=== PATIENT | female | born 1980 | race Caucasian/White ===

== ENCOUNTER 2016-09-25 08:29 | Inpatient (IN) | payer BC, OTHER ==
[~2016-09-25] VITALS: Ht 175.3 cm; Wt 65.8 kg
[2016-09-25] MEDS ORDERED: LOPERAMIDE HCL 2 MG CAPSULE PO PRN ×2 (12:30)
[2016-09-25] MEDS ORDERED: MAG HYDROX/AL HYDROX/SIMETH 30 ML LIQUID UDC PO PRN (12:30)
[2016-09-25] MEDS ORDERED: CLONIDINE HCL 0.1 MG TABLET PO PRN (12:30)
[2016-09-25] MEDS ORDERED: ACETAMINOPHEN 325 MG TABLET PO PRN (12:30)
[2016-09-25] MEDS ORDERED: THIAMINE HCL 200 MG/2 ML VIAL IM ONE (12:30)
[2016-09-25] MEDS ORDERED: ONDANSETRON ODT 4 MG TAB.RAPDIS SL PRN (12:30)
[2016-09-25] MEDS ORDERED: diphenhydrAMINE 50 MG CAPSULE PO PRN (12:30)
[2016-09-25] MEDS ORDERED: LORAZEPAM 1 MG TABLET PO PRN ×2 (12:30)
[2016-09-25] MEDS ORDERED: MAGNESIUM HYDROXIDE 30 ML LIQUID UDC PO PRN (12:30)
[2016-09-25] MEDS ORDERED: HYDROXYZINE PAMOATE 25 MG CAPSULE PO PRN (12:30)
[2016-09-25] MEDS ORDERED: DICYCLOMINE HCL 20 MG TABLET PO PRN (12:30)
[2016-09-25] MEDS ORDERED: LORAZEPAM 2 MG/1 ML VIAL IM PRN (12:30)
[2016-09-25] MEDS ORDERED: MIRALAX 17 GM POWD.PACK PO PRN (12:30)
[2016-09-25] MEDS ORDERED: ONDANSETRON 4 MG/2 ML VIAL IM PRN (12:30)
--- NOTE | 2016-09-25 12:34 | NUR ---
INTAKE ASSESSMENT Patient arrived Aox4, in stable condition. Patient is ambulatory, but states she is very weak because she hasn't eaten in 5 days. Wheelchair provided to patient for transportation upon arrival. Vital signs are stable. Patient reports no known allergies and no seizure history. Patient brought Lexapro and Trazodone with her. Explained unit policies and protocols and patient verbalized understanding. Will admit patient upon arrival to 3rd floor.
[2016-09-25 13:00] VITALS: BP 102/57
[2016-09-25] MEDS ORDERED: ESCI5TAB PO (13:29)
[2016-09-25] MEDS ORDERED: TRAZ-144 PO (13:29)
--- NOTE | 2016-09-25 13:38 | NUR ---
ADMISSION NOTE Vital signs: BP- 102/57 HR-96 TEMP- 96.9 RR-16 O2-96% Pain-6/10 Weight- 145 lbs Height- 5'9 Allergies- NKA Patient is a 36 year old female admitted to [facility] on 09/25/16 at 1250. Patient is under the care of Dr. Bejarano for alcohol dependence. Patient denies any suicidal or homicidal ideations at this time. Patient denies being hospitalized in the last 30 days. Patient denies chest pain or shortness of breath. Patient reports using Lexapro and Trazodone everyday with unknown dosages. Upon assessment, patient has bruising to the right upper forehead, left shoulder, and left forearm. Patient reports the bruising is from playing rough with her child and getting balls thrown at her by her 2 year old. Upon admission, CIWA score is 10. NKA. AOx4. Regular diet. Vital signs stable. Patient is full code. Patient denies any history of seizures. Patient states her PCP is Dr. Emerald Suero and her Psychiatrist is Dr. Harrell. Breathing is even and unlabored. Patient states she hasnt eaten in about 5 days and is feeling very weak. Wheelchair provided to patient for safety. Patient placed on 1:1 with sitter at bedside for observation and safety measures. Patient states bowel habits are normal, but the consistency is abnormally textured. Patient repots being admitted to a detox one year ago, but only stayed for one day. She also reports being involved in many outpatients. Patient reports living with her and her child. She states she has history of anxiety, depression, and neuropathy. Patient does not smoke cigarettes. Dr. Bejarano has assessed patient and placed her under observation. All needs have been met. Patient has been oriented to the room, unit, and staff. All safety measures in place per hospital policy. Bed in lowest position, locked, side rails upx3, call light within reach, sitter at bedside. Will continue to monitor and provide safe and supportive environment. Substance Abuse: ETOH: 1 bottle of wine 3 times a week for 8 months, last drank 1 bottle of wine 09/24/16
[2016-09-25 14:27] LABS: *URINE HCG, QUAL NEGATIVE (NEGATIVE)
[2016-09-25] MEDS: GABAPENTIN 300 MG CAPSULE PO SCH (14:43)
[2016-09-25 15:00] LABS: ALANINE AMINOTRANSFERASE 41 U/L (14-59); ALKALINE PHOSPHATASE 230 U/L (50-136); AMYLASE 32 U/L (25-115); ASPARTATE AMINOTRANSFERASE 286 U/L (15-37); BILIRUBIN,TOTAL 2.3 mg/dL (0.2-1.0); CARBON DIOXIDE 33 mmol/L (21-32); CHLORIDE 99 mmol/L (98-107); CREATININE 0.5 mg/dL (0.6-1.3); GLUCOSE 101 mg/dL (74-106); LIPASE 213 U/L (73-393); MAGNESIUM 1.8 mg/dL (1.8-2.4); POTASSIUM 3.5 mmol/L (3.5-5.1); TOTAL PROTEIN, SERUM 7.6 g/dL (6.4-8.2); UREA NITROGEN, BLOOD 3 mg/dL (7-18)
[2016-09-25 15:09] LABS: BASOPHILS % (AUTO) 0.7 % (0.0-2.0); EOSINOPHILS % (AUTO) 0.9 % (0.0-7.0); LYMPHOCYTES # (AUTO) 0.4 K/UL (0.8-4.8); LYMPHOCYTES % (AUTO) 16.8 % (20.5-51.5); MEAN CORPUSCULAR HGB CONC 30 g/dL (32.0-37.0); MONOCYTES # (AUTO) 0.4 K/UL (0.1-1.30); MONOCYTES % (AUTO) 16.5 % (0.0-11.0); NEUTROPHILS # (AUTO) 1.4 K/UL (1.8-8.9); NEUTROPHILS % (AUTO) 65.1 % (38.5-71.5); RED BLOOD CELL COUNT(AUTO) 2.91 MIL/UL (4.2-5.4); WHITE BLOOD COUNT (AUTO) 2.2 K/UL (4.0-11.2)
[2016-09-25 15:23] LABS: HEMATOCRIT 23.2 % (37-47); PLATELET COUNT (AUTO) 30 K/UL (150-450)
[2016-09-25 15:29] LABS: THYROID STIMULATING HORMONE 0.571 mIU/mL (0.358-3.740)
--- NOTE | 2016-09-25 15:30 | NUR ---
ABNORMAL LAB VALUES Grupo from Lab called to report abnormal lab values WBC 2.2 HGB 7.0 PLT [address]. Bejarano. Patient is to increase fluid intake per Dr. Bejarano. Repeat CBC ordered to be drawn tomorrow morning.
[2016-09-25 16:00] VITALS: BP 94/54
[2016-09-25 16:03] LABS: *AMPHETAMINE, URINE NEGATIVE (NEGATIVE); *BARBITURATE, URINE NEGATIVE (NEGATIVE); *CANNABINOID, URINE NEGATIVE (NEGATIVE); *COCCAINE, URINE NEGATIVE (NEGATIVE); *OPIATE, URINE NEGATIVE (NEGATIVE); *PHENCYCLIDINE SCREEN,URINE NEGATIVE (NEGATIVE)
[2016-09-25 16:11] LABS: ETHANOL 423 MG/DL (0-0)
[2016-09-25 16:40] LABS: BAND % (MANUAL) 6 % (0-10); LYMPHOCYTES % (MANUAL) 14 % (20-40); MONOCYTES % (MANUAL) 17 % (2-10); NEUTROPHILS % (MANUAL) 63 % (42-75)
--- NOTE | 2016-09-25 17:12 | NUR ---
Therapist informed client of group times. Client did not want to attend afternoon group since she was just admitted.
[2016-09-25] MEDS: IBUPROFEN 600 MG TABLET PO PRN (17:15)
--- NOTE | 2016-09-25 17:15 | NUR ---
PRN MEDS PRN Motrin given for right sided ear pain 10/05. Patient reports it is an aching pain. Will reassess.
--- NOTE | 2016-09-25 18:00 | NUR ---
PRN REASSESSMENT Patient sleeping calmly in bed with RR even and unlabored. Sitter at bedside. Bed locked and in lowest position and call collins within reach. Will monitor
--- NOTE | 2016-09-25 18:24 | NUR ---
END OF SHIFT NOTE Admitted patient this afternoon. Patient admitted for ETOH dependence. PMH anxiety, depression, neuropathy. Patient on PRNs only as of now. PRN Ibuprofen given for right ear pain 10/05. Encouraged patient to increase fluid intake to facilitate detox and hydrate patient to help normalize lab values as ordered by Dr. Bejarano.CIWA 10 upon admission and decreased to 7 at 1600. Patient presents weak and unsteady. Sitter at bedside for safety. Patient currently resting in bed with bed locked and in lowest position and call collins within reach. Will pass shift report to oncoming nurse.
[2016-09-25 20:00] VITALS: BP 99/59
--- NOTE | 2016-09-25 20:00 | NUR ---
Start of Shift Note: Report received from day shift nurse. Pt is a 36 yo female admitted on 09/25/2016 for medically-supervised withdrawal from ETOH. Upon admission, pt reports a drinking one bottle of wine three times per week. Upon assessment, pt admits to drinking more than one bottle of wine on a daily basis. Pt is to start a 5-day Ativan taper tomorrow. Last day shift CIWA=7, and PRN Motrin was administered during day shift. Pt reports NKDA/NKFA. Full code status. Pt is on a regular diet. Pt reports PMHx: anxiety, depression, and BLE neuropathy. Pt received in room, and reports anxiety, nausea, tremor, diaphoresis, agitation, sensitivity to light and sound. Pt is on 1:1 with EMAIL MARKETING INTERN for unsteady gait and safety. Bed is in low position and locked, side rails up x2, call light within reach. Will continue to monitor.
--- NOTE | 2016-09-25 20:05 | NUR ---
SPO2 89% on RA: Patient's SPO2 on RA is 89%. Pt denies dyspnea, SOB. Patient placed on 2L O2 and SPO2 increased to 96%. MD aware. CXR ordered.
--- NOTE | 2016-09-25 20:20 | NUR ---
PRN Ativan: Patient complains of anxiety, agitation, nausea, sensitivity to light and sound, and diaphoresis. Patient noted with fine hand tremor. CIWA is 14. Administered PRN Ativan 1mg PO as ordered. Will reassess in one hour.
[2016-09-25] MEDS ORDERED: GABAPENTIN 300 MG CAPSULE PO SCH (21:00)
--- NOTE | 2016-09-25 21:20 | NUR ---
PRN Reassessment: Patient reports a decrease in anxiety, agitation, tremor, nausea. CIWA decreased from 14 to 6 one hour after PRN Ativan 1mg PO administration. PRN Ativan effective. Will continue to monitor.
--- NOTE | 2016-09-25 21:32 | NUR ---
CXR Results: Dr Bejarano made aware of CXR results: slight discoid atelectasis at lung bases. NNO at this time.
[2016-09-26] VITALS (7 sets, daily range): BP systolic 105–120; BP diastolic 60–68
--- NOTE | 2016-09-26 | NUR ---
CIWA Deferred: CIWA assessment is deferred for sleep. V/S stable on 2L O2 via NC. All safety precautions are in place. Pt continues on 1:1. Will continue to monitor. Addendum: 09/26/16 at 0331 by RO BRASWELL RN Amended: Links added.
--- NOTE | 2016-09-26 04:00 | NUR ---
YONY Deferred: Ordered 04:00 YONY deferred for sleep. V/S stable on 2L O2 via NC. All safety precautions are in place. Will continue to monitor. Addendum: 09/26/16 at 0445 by RO BRASWELL RN Amended: Links added.
[2016-09-26] MEDS: IBUPROFEN 600 MG TABLET PO PRN (06:01)
--- NOTE | 2016-09-26 06:01 | NUR ---
PRN Motrin: Patient complains of right ear pain. Patient rates pain 6/10. Administered PRN Motrin as ordered. Will continue to monitor.
--- NOTE | 2016-09-26 06:11 | NUR ---
PRN Ativan and PRN Zofran: Patient noted with bilateral hand tremor and diaphoresis. Patient reports tactile disturbances, anxiety, agitation, nausea. CIWA is 19. Administered PRN Ativan 2mg as ordered. Patient complains of nausea, denies episodes of emesis. Administered PRN Zofran SL as ordered. Will continue to monitor.
--- NOTE | 2016-09-26 07:04 | NUR ---
PRN Reassessment: Patient reports that PRN Motrin was not effective in reducing right ear pain. Will endorse follow-up to day shift nurse. Patient reports that PRN Zofran was effective in reducing nausea.
--- NOTE | 2016-09-26 07:15 | NUR ---
PRN Reassessment: Patient reports decrease in anxiety, agitation, nausea. Pt noted with mild decrease in tremor. CIWA decreased from 19 to 10 one hour after PRN Ativan 2mg administration.
--- NOTE | 2016-09-26 07:50 | NUR ---
End of Shift Note: Pt is a 36 yo female admitted to [facility] on 09/25/2016 for medically-supervised withdrawal from ETOH. Pt reports PMHx: anxiety, depression, and BLE neuropathy. Pt reports NKDA/NKFA. Full code status. Pt is on a regular diet. Pt reports drinking one bottle of wine daily for 8 months. Pt is to start a 5-day Ativan taper today. PRN Zofran was given for nausea, effective; and PRN Motrin was given for right ear pain/headache; not effective. PRN Ativan 1mg was given for CIWA=14, which was effective. PRN Ativan 2mg was given for CIWA=19, which was mildly effective. Last CIWA=10 at 07:15. V/S stable on 2L O2 via NC. SpO2 on RA is 89%, new CXR results slight discoid atelectasis. Total fluid intake this shift: 500 ml; output: urine x 1 and BM x 0. Pt currently in bed and slept 9 hours this shift. All safety precautions in place, and pt continues on 1:1 for unsteady gait. Pt endorsed to day shift nurse.
--- NOTE | 2016-09-26 08:00 | NUR ---
START OF SHIFT: RECEIVED PT FROM EQUIPMENT SERVICE TECHNICIAN NURSE PT WITHOUT PAIN OR DISCOMFORT. PT IS ADMITTED [facility] FOR ETOH WITHDRAWAL/DEPENDENCE. PTS LAST CIWA 13. PT REMAINS ON PRN OXYGEN TOLERATED. PT WILL RECEIVE ATIVAN TAPER MEDICATIONS ORDERED AND MONITOR FOR ANY A/R. PT REMAINS ON 1:1 FOR UNSTEADY GAIT AND SAFETY PRECAUTIONS.
[2016-09-26 08:06] LABS: HEPATITIS B SURFACE AG Negative (Negative)
[2016-09-26 08:08] LABS: BASOPHILS % (AUTO) 0.9 % (0.0-2.0); EOSINOPHILS % (AUTO) 0.8 % (0.0-7.0); LYMPHOCYTES # (AUTO) 0.4 K/UL (0.8-4.8); LYMPHOCYTES % (AUTO) 21.3 % (20.5-51.5); MEAN CORPUSCULAR HEMOGLOBIN 24.8 UUG (27.0-31.0); MEAN CORPUSCULAR HGB CONC 31 g/dL (32.0-37.0); MEAN CORPUSCULAR VOLUME 80.7 FL (81.0-99.0); MONOCYTES # (AUTO) 0.3 K/UL (0.1-1.30); MONOCYTES % (AUTO) 16.8 % (0.0-11.0); NEUTROPHILS % (AUTO) 60.2 % (38.5-71.5); RED BLOOD CELL COUNT(AUTO) 2.57 MIL/UL (4.2-5.4)
[2016-09-26 08:12] LABS: HEMATOCRIT 20.7 % (37-47); HEMOGLOBIN 6.4 G/DL (12.0-16.0); PLATELET COUNT (AUTO) 24 K/UL (150-450); WHITE BLOOD COUNT (AUTO) 1.7 K/UL (4.0-11.2)
[2016-09-26 08:17] LABS: BAND % (MANUAL) 2 % (0-10); LYMPHOCYTES % (MANUAL) 22 % (20-40); MONOCYTES % (MANUAL) 14 % (2-10); NEUTROPHILS % (MANUAL) 62 % (42-75)
--- NOTE | 2016-09-26 08:19 | NUR ---
placed a call to Dr. Bejarano regarding critical lab values. Awaiting call back for any orders
[2016-09-26] MEDS: GABAPENTIN 300 MG CAPSULE PO SCH ×2 (08:36→15:44)
[2016-09-26] MEDS: LORAZEPAM 1 MG TABLET PO SCH ×3 (08:36→17:23)
--- NOTE | 2016-09-26 08:47 | NUR ---
PLACED A CALL TO REGARDING PT'S CIWA AND TREMORS, MD ORDERED X1 BOLUS NOW AND TO START PT ON IV FLUIDS AT 100CC/PER HR.
[2016-09-26] MEDS ORDERED: THIAMINE HCL 100 MG TABLET PO SCH (09:00)
[2016-09-26] MEDS ORDERED: MULTIVITAMINS,THERAPEUTIC TABLET PO SCH (09:00)
[2016-09-26] MEDS ORDERED: 5 DAY TAPER OF LORAZEPAM -SERENITY PROTOCOL PO PRN (09:00)
[2016-09-26] MEDS ORDERED: TUBERCULIN,PURIF.PROT.DERIV. 5 TU/0.1 ML TEST ID ONE (09:00)
[2016-09-26] MEDS ORDERED: IV NORMAL SALINE 500 ML IV ONE ×2 (09:00→18:00)
[2016-09-26] MEDS ORDERED: FOLIC ACID 1 MG TABLET PO SCH (09:00)
[2016-09-26] MEDS ORDERED: DOCUSATE SODIUM 250 MG CAPSULE PO SCH (09:00)
[2016-09-26] MEDS ORDERED: IV NS 1000 ML 1,000 ML IV ONE (10:30)
[2016-09-26 11:15] LABS: THYROID STIMULATING HORMONE 1.699 mIU/mL (0.358-3.740)
--- NOTE | 2016-09-26 11:48 | NUR ---
BLOOD TRANSFUSION INITIATED WILL MONITOR PT FOR ANY CHANGES AND ANY TRANSFUSION REACTIONS.
[2016-09-26] MEDS ORDERED: diphenhydrAMINE 25 MG CAP PO ONE (12:00)
[2016-09-26 13:50] LABS: BILIRUBIN,DIRECT 2.6 mg/dL (0.0-0.2); BILIRUBIN,TOTAL 3.3 mg/dL (0.2-1.0)
--- NOTE | 2016-09-26 14:15 | NUR ---
BLOOD TRANSFUSION WAS STOPPED, PT WITH ELEVATED TEMPERATURE FROM INITIAL V/S BEFORE BLOOD TRANSFUSION WAS 97.9 TO DURING TRANSFUSION AT 1400 ELEVATED TO 99.0 TO 1415 100.3. INFUSION STOPPED AND PRIMARY MD MADE AWARE. 3/4 OF 500ML BAG WAS ADMINISTERED. TRANSFUSION REACTION FACILITY PROTOCOL WAS RENDERED AND REMAINING BLOOD PRODUCT WAS RETURNED TO LAB.
[2016-09-26] MEDS ORDERED: Medication Not On Formulary EA (Escitalopram Oxalate (Lexapro) 1 TAB) PO SCH (14:30)
[2016-09-26] MEDS ORDERED: ESCITALOPRAM OXALATE 10 MG TABLET PO SCH (14:30)
[2016-09-26 14:51] LABS: *BLOOD, URINE NEGATIVE (NEGATIVE); *CLARITY,URINE CLEAR (CLEAR); *COLOR,URINE DARK YELLOW (YELLOW); *KETONES,URINE 1+ (NEGATIVE); *PROTEIN,URINE NEGATIVE (NEGATIVE); LEUKOCYTE ESTERASE ,URINE NEGATIVE (NEGATIVE); NITRITE, URINE NEGATIVE (NEGATIVE); PH,URINE 6.5 (5.0-8.0); UGLUCOSE NEGATIVE (NEGATIVE)
--- NOTE | 2016-09-26 16:00 | NUR ---
PT WAS SEEN BY DR. RYAN MD INTRODUCED THE IDEA OF HAVING BONE MARROW BIOPSY AND ASPIRATION. PT VERBALIZED PT WILL THINK ABOUT IT. IF PROCEDURE WILL HAPPEN, MD WILL COME TOMORROW FOR PROCEDURE
[2016-09-26 16:23] LABS: *BILIRUBIN,URIN 1+ (NEGATIVE)
[2016-09-26 16:26] LABS: BACTERIA,URINE FEW /HPF (NONE SEEN); SQUAMOUS EPITHELIAL CELL,UR MODERATE /HPF (NONE SEEN); WBC,URINE 0-3 /HPF (0-3)
--- NOTE | 2016-09-26 17:45 | NUR ---
MD communication Pt noted to have a large amount of blood during a BM, notified Dr Bejarano, ordered stat CBC now, then Q4H, notify MD of significant changes, 500ml NS bolus x 1 now, protonix 40mg IVP Q12H, first dose now. Orders entered, MD unable to enter orders.
[2016-09-26] MEDS ORDERED: TRAZODONE 50 MG TABLET PO SCH ×2 (18:00→21:00)
[2016-09-26] MEDS ORDERED: PANTOPRAZOLE SODIUM 40 MG VIAL IV SCH ×2 (18:22→21:00)
[2016-09-26 18:39] LABS: EOSINOPHILS % (AUTO) 0.7 % (0.0-7.0); LYMPHOCYTES # (AUTO) 0.4 K/UL (0.8-4.8); LYMPHOCYTES % (AUTO) 21.2 % (20.5-51.5); MEAN CORPUSCULAR HEMOGLOBIN 26.3 UUG (27.0-31.0); MEAN CORPUSCULAR HGB CONC 33 g/dL (32.0-37.0); MONOCYTES # (AUTO) 0.4 K/UL (0.1-1.30); MONOCYTES % (AUTO) 17.2 % (0.0-11.0); NEUTROPHILS # (AUTO) 1.3 K/UL (1.8-8.9); NEUTROPHILS % (AUTO) 59.9 % (38.5-71.5); RED BLOOD CELL COUNT(AUTO) 2.62 MIL/UL (4.2-5.4); WHITE BLOOD COUNT (AUTO) 2.1 K/UL (4.0-11.2)
--- NOTE | 2016-09-26 18:40 | NUR ---
ENDORSED PT TO ER NURSE VALDEZ, PT WAS PLACED IN GURNEY AND SAFETY PRECAUTIONS RENDERED Addendum: 09/26/16 at 1859 by CHELO VELÁZQUEZ RN TRANSFER NOTE:
[2016-09-26 18:41] LABS: HEMOGLOBIN 6.9 G/DL (12.0-16.0)
[2016-09-26 18:42] LABS: PLATELET COUNT (AUTO) 22 K/UL (150-450)
[2016-09-26 19:05] LABS: BAND % (MANUAL) 14 % (0-10); LYMPHOCYTES % (MANUAL) 19 % (20-40); MONOCYTES % (MANUAL) 15 % (2-10); NEUTROPHILS % (MANUAL) 52 % (42-75)
[2016-09-26] MEDS ORDERED: THIA100T13 PO (19:11)
[2016-09-26] MEDS ORDERED: TRAZ-144 PO (19:11)
[2016-09-26] MEDS ORDERED: ESCI5TAB PO (19:11)
[2016-09-26] MEDS ORDERED: ZOFRAN IM (19:11)
[2016-09-26] MEDS ORDERED: DICY20TA11 PO (19:11)
[2016-09-26] MEDS ORDERED: MULT-70 PO (19:11)
[2016-09-26] MEDS ORDERED: GABA-534 PO (19:11)
[2016-09-26] MEDS ORDERED: DIPH25CA83 PO (19:11)
[2016-09-26] MEDS ORDERED: FOLI1TAB16 PO (19:11)
[2016-09-26] MEDS ORDERED: AMOX-430 PO (19:11)
[2016-09-26] MEDS ORDERED: LOPE2CAP PO (19:11)
[2016-09-26] MEDS ORDERED: IBUP-1481 PO (19:11)
[2016-09-26] MEDS ORDERED: DOCU-170 PO (19:11)
[2016-09-26] MEDS ORDERED: POLY17PO4 PO (19:11)
[2016-09-26] MEDS ORDERED: MAGNESIUM PO (19:11)
[2016-09-26] MEDS ORDERED: PROTONIX IV (19:11)
[2016-09-26] MEDS ORDERED: CLON0.1T PO (19:11)
[2016-09-26] MEDS ORDERED: ACET-2154 PO (19:11)
[2016-09-26] MEDS ORDERED: FERR325T28 PO (19:11)
[2016-09-26] MEDS ORDERED: HYDR-3028 PO (19:11)
[2016-09-26] MEDS ORDERED: MAG-55 PO (19:11)
[2016-09-26] MEDS ORDERED: ATIVAN PO (19:11)
[2016-09-26] MEDS ORDERED: FERROUS SULFATE 325 MG TABEC PO SCH (21:00)
[2016-09-26] MEDS ORDERED: AMOXICILLIN-CLAVUL 875-125MG TABLET PO SCH (21:00)
[2016-09-27] MEDS ORDERED: LORAZEPAM 1 MG TABLET PO SCH (09:00)
[2016-09-28] MEDS ORDERED: LORAZEPAM 1 MG TABLET PO SCH (09:00)
[2016-09-29] MEDS ORDERED: LORAZEPAM 1 MG TABLET PO SCH (09:00)
[2016-09-30] MEDS ORDERED: LORAZEPAM 1 MG TABLET PO SCH (09:00)
== END 2016-09-26 18:35 | disposition short-term general hospital (02) | DRG 897 ==
LOC: SRC 11:50
PROVIDERS: ADMIT Internal Medicine; ATTEND Internal Medicine
PROC: HZ2ZZZZ Detoxification Services for Substance Abuse Treatment (ICD-10-PCS; principal; 2016-09-25)
PROC: 30233N1 Transfusion of Nonautologous Red Blood Cells into Peripheral Vein, Percutaneous Approach (ICD-10-PCS; 2016-09-26)
DX: F10.230 Alcohol dependence with withdrawal, uncomplicated (principal); D61.818 Other pancytopenia; K92.2 Gastrointestinal hemorrhage, unspecified; D62 Acute posthemorrhagic anemia; G62.1 Alcoholic polyneuropathy; K70.30 Alcoholic cirrhosis of liver without ascites; Y90.8 Blood alcohol level of 240 mg/100 ml or more; G47.00 Insomnia, unspecified; Z80.8 Family history of malignant neoplasm of other organs or systems; F41.9 Anxiety disorder, unspecified; Z87.19 Personal history of other diseases of the digestive system
CPT/HCPCS: 36415; 71010; 80307; 82746; 83550; 83615; 83690; 83735; 84155; 84165; 84443; 84703; 85025; 85610; 85730; 86592; 86705; 86803; 86850; 86900; 86901; 86920; 87040; 87340; 87806; A4663; C9113; G6040-TC; J3411; J7040; P9016-BL; P9021; Q0162; Q0163

== ENCOUNTER 2016-09-26 18:46 | Inpatient (IN) | payer BC, OTHER ==
[~2016-09-26] VITALS: Ht 172.7 cm; Wt 71.2 kg
[~2016-09-26 18:46] MED LIST: ESCI5TAB PO; TRAZ-144 PO
[2016-09-26] MEDS ORDERED: IV NORMAL SALINE 1000 ML BAG IV ONE ×2 (19:00→20:00)
[2016-09-26] MEDS ORDERED: DICY20TA11 PO (19:11)
[2016-09-26] MEDS ORDERED: LOPE2CAP PO (19:11)
[2016-09-26] MEDS ORDERED: MULT-70 PO (19:11)
[2016-09-26] MEDS ORDERED: POLY17PO4 PO (19:11)
[2016-09-26] MEDS ORDERED: FERR325T28 PO (19:11)
[2016-09-26] MEDS ORDERED: DOCU-170 PO (19:11)
[2016-09-26] MEDS ORDERED: IBUP-1481 PO (19:11)
[2016-09-26] MEDS ORDERED: ZOFRAN IM (19:11)
[2016-09-26] MEDS ORDERED: HYDR-3028 PO (19:11)
[2016-09-26] MEDS ORDERED: GABA-534 PO (19:11)
[2016-09-26] MEDS ORDERED: CLON0.1T PO (19:11)
[2016-09-26] MEDS ORDERED: MAG-55 PO (19:11)
[2016-09-26] MEDS ORDERED: AMOX-430 PO (19:11)
[2016-09-26] MEDS ORDERED: ATIVAN PO (19:11)
[2016-09-26] MEDS ORDERED: THIA100T13 PO (19:11)
[2016-09-26] MEDS ORDERED: ACET-2154 PO (19:11)
[2016-09-26] MEDS ORDERED: FOLI1TAB16 PO (19:11)
[2016-09-26] MEDS ORDERED: DIPH25CA83 PO (19:11)
[2016-09-26] MEDS ORDERED: TRAZ-144 PO (19:11)
[2016-09-26] MEDS ORDERED: MAGNESIUM PO (19:11)
[2016-09-26] MEDS ORDERED: PROTONIX IV (19:11)
[2016-09-26] MEDS ORDERED: ESCI5TAB PO (19:11)
[2016-09-26 19:29] LABS: MEAN CORPUSCULAR HEMOGLOBIN 24.9 UUG (27.0-31.0); MEAN CORPUSCULAR HGB CONC 31 g/dL (32.0-37.0); MEAN CORPUSCULAR VOLUME 81.2 FL (81.0-99.0); RED BLOOD CELL COUNT(AUTO) 2.62 MIL/UL (4.2-5.4)
[2016-09-26 19:41] LABS: BASOPHILS % (AUTO) 0.8 % (0.0-2.0); EOSINOPHILS % (AUTO) 0.9 % (0.0-7.0); LYMPHOCYTES # (AUTO) 0.3 K/UL (0.8-4.8); LYMPHOCYTES % (AUTO) 17.8 % (20.5-51.5); MONOCYTES # (AUTO) 0.3 K/UL (0.1-1.30); MONOCYTES % (AUTO) 19.7 % (0.0-11.0); NEUTROPHILS # (AUTO) 1.1 K/UL (1.8-8.9); NEUTROPHILS % (AUTO) 60.8 % (38.5-71.5)
[2016-09-26 19:42] LABS: BILIRUBIN,DIRECT 4.3 mg/dL (0.0-0.2); BILIRUBIN,TOTAL 5.8 mg/dL (0.2-1.0); CREATININE 0.6 mg/dL (0.6-1.3); POTASSIUM 3.3 mmol/L (3.5-5.1); TOTAL PROTEIN, SERUM 6.3 g/dL (6.4-8.2)
[2016-09-26 19:43] LABS: HEMATOCRIT 21.3 % (37-47); HEMOGLOBIN 6.5 G/DL (12.0-16.0); PLATELET COUNT (AUTO) 22 K/UL (150-450); WHITE BLOOD COUNT (AUTO) 1.9 K/UL (4.0-11.2)
--- NOTE | 2016-09-26 19:45 | NUR ---
PER ERMD CONTACTED [facility], SVP TO HAVE PHILIPPE SOLANO MD PAGED....
--- NOTE | 2016-09-26 20:15 | NUR ---
contacted by father Northsaeed Rodriguez , gave update... advised pt will be admitted, advised will call father when more info available...
--- NOTE | 2016-09-26 20:20 | NUR ---
contacted [facility], spoke with [employer] who states pts luggage is locked in storage, stated they will deliver bag with toiletries, and keep luggage locked in storage....
[2016-09-26 20:42] LABS: BAND % (MANUAL) 3 % (0-10); BASOPHILS % (MANUAL) 0 % (0-2); EOSINOPHILS % (MANUAL) 1 % (0-8); LYMPHOCYTES % (MANUAL) 17 % (20-40); MONOCYTES % (MANUAL) 15 % (2-10); NEUTROPHILS % (MANUAL) 63 % (42-75)
--- NOTE | 2016-09-26 21:23 | NUR ---
Pt. admitted to telemetry room 203 , under care of Dr. Ajay Garcia,Belongs List completed, pt is alert, oriented x 4, no resp distress noted or reported upon assessment... pt transferred via gurney...
--- NOTE | 2016-09-26 21:30 | NUR ---
nsg: pt received fr er via yvonne, a/o x 4, with dx of anemia, neutropenia. v/s stable afebrile. tele, SR with hr 110-114. cont to monitor. on fall and aspiration precaution.
[2016-09-26 21:34] LABS: *BLOOD, URINE 3+ (NEGATIVE); *COLOR,URINE RED (YELLOW); *KETONES,URINE NEGATIVE (NEGATIVE); *UROBILINOGEN,URINE >=8.0 E.U./dl (NORMAL); LEUKOCYTE ESTERASE ,URINE NEGATIVE (NEGATIVE); NITRITE, URINE NEGATIVE (NEGATIVE); PH,URINE 7.5 (5.0-8.0); UGLUCOSE NEGATIVE (NEGATIVE)
[2016-09-26 21:39] VITALS: BP 116/69
[2016-09-26] MEDS ORDERED: Z GUARD REMEDY PASTE 57 GM TUBE TOP PRN (21:45)
[2016-09-26] MEDS ORDERED: ONDANSETRON 4 MG/2 ML VIAL IV PRN (21:45)
[2016-09-26 21:50] LABS: *BILIRUBIN,URIN 2+ (NEGATIVE); *CLARITY,URINE BLOODY (CLEAR); *PROTEIN,URINE 3+ (NEGATIVE)
[2016-09-26 21:53] LABS: RBC,URINE TNTC /HPF (0-3); SQUAMOUS EPITHELIAL CELL,UR FEW /HPF (NONE SEEN)
[2016-09-26] MEDS ORDERED: POTASSIUM CHLORIDE 20 MEQ TAB.PRT.SR PO ONE (22:00)
[2016-09-26] MEDS: IV NS 1000 ML 1,000 ML IV PRN (22:17)
[2016-09-26] MEDS: LEVOFLOXACIN 500 MG/D5W 500 MG in PREMIXED 1 EACH IV SCH (22:17)
[2016-09-26] MEDS ORDERED: LEVOFLOXACIN 500 MG/D5W 100 ML ONE (22:22)
[2016-09-26] MEDS: LORAZEPAM 2 MG/1 ML VIAL IV PRN (22:25)
[2016-09-26] MEDS ORDERED: LORAZEPAM 2 MG/1 ML VIAL ONE (22:35)
[2016-09-26 23:01] LABS: *BLOOD, URINE NEGATIVE (NEGATIVE); *CLARITY,URINE CLEAR (CLEAR); *COLOR,URINE AMBER (YELLOW); *KETONES,URINE NEGATIVE (NEGATIVE); *PROTEIN,URINE NEGATIVE (NEGATIVE); *UROBILINOGEN,URINE >=8.0 E.U./dl (NORMAL); LEUKOCYTE ESTERASE ,URINE NEGATIVE (NEGATIVE); NITRITE, URINE NEGATIVE (NEGATIVE); PH,URINE 7.5 (5.0-8.0); UGLUCOSE NEGATIVE (NEGATIVE)
[2016-09-26 23:13] LABS: *BILIRUBIN,URIN 3+ (NEGATIVE)
[2016-09-26 23:14] LABS: SQUAMOUS EPITHELIAL CELL,UR MODERATE /HPF (NONE SEEN); WBC,URINE 0-3 /HPF (0-3)
[2016-09-27] VITALS (12 sets, daily range): BP systolic 105–129; BP diastolic 60–79
[2016-09-27] MEDS: TRAZODONE 50 MG TABLET PO SCH ×2 (00:52→20:26)
[2016-09-27] MEDS ORDERED: TRAZODONE 50 MG TABLET ONE (01:01)
[2016-09-27] MEDS: ACETAMINOPHEN 325 MG TABLET PO PRN ×2 (01:42→21:13)
[2016-09-27] MEDS: LORAZEPAM 2 MG/1 ML VIAL IV PRN ×3 (01:43→23:04)
[2016-09-27] MEDS ORDERED: LORAZEPAM 2 MG/1 ML VIAL ONE (01:51)
[2016-09-27] MEDS ORDERED: ACETAMINOPHEN 325 MG TABLET ONE (01:51)
--- NOTE | 2016-09-27 06:07 | NUR ---
NSND UNIT PRBC COMPLETED. STILL WITH LOW GRADE TEMP OF 100.0F ORAL. CONT TO MONITOR.
[2016-09-27] MEDS: ESCITALOPRAM OXALATE 10 MG TABLET PO SCH (08:15)
[2016-09-27] MEDS: THIAMINE HCL 100 MG TABLET PO SCH (08:15)
[2016-09-27] MEDS: GABAPENTIN 300 MG CAPSULE PO SCH ×3 (08:16→17:31)
[2016-09-27] MEDS: PANTOPRAZOLE SODIUM 40 MG TABLET.DR PO SCH (08:16)
[2016-09-27 08:24] LABS: BASOPHILS % (AUTO) 0.4 % (0.0-2.0); EOSINOPHILS % (AUTO) 0.8 % (0.0-7.0); HEMATOCRIT 26.8 % (37-47); HEMOGLOBIN 8.9 G/DL (12.0-16.0); LYMPHOCYTES # (AUTO) 0.5 K/UL (0.8-4.8); LYMPHOCYTES % (AUTO) 18.8 % (20.5-51.5); MEAN CORPUSCULAR HEMOGLOBIN 26.9 UUG (27.0-31.0); MEAN CORPUSCULAR HGB CONC 33 g/dL (32.0-37.0); MEAN CORPUSCULAR VOLUME 81.1 FL (81.0-99.0); MONOCYTES # (AUTO) 0.3 K/UL (0.1-1.30); MONOCYTES % (AUTO) 12.5 % (0.0-11.0); NEUTROPHILS # (AUTO) 1.6 K/UL (1.8-8.9); NEUTROPHILS % (AUTO) 67.5 % (38.5-71.5); RED BLOOD CELL COUNT(AUTO) 3.31 MIL/UL (4.2-5.4); WHITE BLOOD COUNT (AUTO) 2.4 K/UL (4.0-11.2)
[2016-09-27 08:43] LABS: ALANINE AMINOTRANSFERASE 26 U/L (14-59); ALKALINE PHOSPHATASE 212 U/L (50-136); ASPARTATE AMINOTRANSFERASE 205 U/L (15-37); BILIRUBIN,TOTAL 9.1 mg/dL (0.2-1.0); CARBON DIOXIDE 26 mmol/L (21-32); CHLORIDE 105 mmol/L (98-107); CHOLESTEROL 121 mg/dL (<200); CREATININE 0.4 mg/dL (0.6-1.3); GLUCOSE 76 mg/dL (74-106); HDL CHOLESTEROL 20 mg/dL (40-60); PHOSPHOROUS 1.2 mg/dL (2.5-4.9); POTASSIUM 3.8 mmol/L (3.5-5.1); THYROID STIMULATING HORMONE 2.335 mIU/mL (0.358-3.740); TOTAL PROTEIN, SERUM 6.3 g/dL (6.4-8.2); TRIGLYCERIDES 93 MG/DL (30-150); UREA NITROGEN, BLOOD 4 mg/dL (7-18)
--- NOTE | 2016-09-27 08:46 | NUR ---
systems technologist Vad reports Platelet 20,000. Mg 1.2.
[2016-09-27 08:47] LABS: MAGNESIUM 1.2 mg/dL (1.8-2.4)
[2016-09-27 08:48] LABS: PLATELET COUNT (AUTO) 20 K/UL (150-450)
[2016-09-27] MEDS ORDERED: CIPROFLOXACIN-HC OTIC DROP 10 ML BOTTLE RIGHT EAR SCH (09:00)
[2016-09-27 09:04] LABS: BAND % (MANUAL) 4 % (0-10); EOSINOPHILS % (MANUAL) 1 % (0-8); LYMPHOCYTES % (MANUAL) 23 % (20-40); MONOCYTES % (MANUAL) 10 % (2-10); NEUTROPHILS % (MANUAL) 62 % (42-75)
[2016-09-27] MEDS: MAGNESIUM SULFATE/D5W 100 ML IV SCH ×4 (11:03→16:30)
[2016-09-27] MEDS: POTASSIUM PHOSPHATE MM 5 MMOL in IV DEXTROSE 5% 100 ML IV SCH ×5 (12:50→21:13)
[2016-09-27] MEDS ORDERED: TRAZODONE 50 MG TABLET PO SCH ×2 (18:00→21:00)
[2016-09-27 18:30] LABS: HEMATOCRIT 29.1 % (37-47); HEMOGLOBIN 9.1 G/DL (12.0-16.0)
[2016-09-27] MEDS: PHYTONADIONE 10 MG/1 ML AMPUL SQ SCH (19:03)
--- NOTE | 2016-09-27 19:10 | NUR ---
Patient is hallucinating and believing that she sees multiple children running around unit. Patient attempts to get out of bed frequently although being a fall risk. Patient instructed to call staff before ambulating. Bed alarm on.
--- NOTE | 2016-09-27 19:30 | NUR ---
PT RECEIVED IN BED, AWAKE, COMFORTABLE. V/S STABLE. NO S/S OF ACUTE DISTRESS. NO COMPLAINTS OF PAIN.
[2016-09-27] MEDS: LEVOFLOXACIN 500 MG/D5W 500 MG in PREMIXED 1 EACH IV SCH (22:39)
[2016-09-27] MEDS: IV NS 1000 ML 1,000 ML IV PRN (23:16)
[2016-09-28] VITALS (10 sets, daily range): BP systolic 117–144; BP diastolic 57–87
[2016-09-28] MEDS: POTASSIUM PHOSPHATE MM 5 MMOL in IV DEXTROSE 5% 100 ML IV SCH (00:26)
--- NOTE | 2016-09-28 05:50 | NUR ---
PT SLEPT INTERMITTENTLY THROUGHOUT SHIFT. V/S STABLE. NO S/S OF ACUTE DISTRESS. PT HAS BILATERAL LOWER EXTREMITY WEAKNESS, INSISTS TO AMBULATE TO BATHROOM. ASSISTED REQUESTED, BUT PT WAS VERY UNSTEADY. ENCOURAGED TO USE BEDPAN AT THIS TIME. BED ALARM SET. IV SITE PULLED OUT. NEW IV LINE STARTED, IVF INFUSING. PT HAD BM, STILL NOTED WITH BLOOD. SAFETY MAINTAINED. CALL LIGHT WITHIN REACH.
[2016-09-28] MEDS: PANTOPRAZOLE SODIUM 40 MG TABLET.DR PO SCH (06:23)
[2016-09-28 07:01] LABS: HEMATOCRIT 26.2 % (37-47); HEMOGLOBIN 8.5 G/DL (12.0-16.0)
[2016-09-28 08:03] LABS: ALANINE AMINOTRANSFERASE 23 U/L (14-59); ALKALINE PHOSPHATASE 197 U/L (50-136); ASPARTATE AMINOTRANSFERASE 161 U/L (15-37); BILIRUBIN,TOTAL 9.1 mg/dL (0.2-1.0); CARBON DIOXIDE 25 mmol/L (21-32); CHLORIDE 105 mmol/L (98-107); CREATININE 0.5 mg/dL (0.6-1.3); GLUCOSE 79 mg/dL (74-106); MAGNESIUM 1.9 mg/dL (1.8-2.4); PHOSPHOROUS 1.8 mg/dL (2.5-4.9); POTASSIUM 3.4 mmol/L (3.5-5.1); UREA NITROGEN, BLOOD < 1 mg/dL (7-18)
[2016-09-28] MEDS: THIAMINE HCL 100 MG TABLET PO SCH (08:13)
[2016-09-28] MEDS: ESCITALOPRAM OXALATE 10 MG TABLET PO SCH (08:13)
[2016-09-28] MEDS: GABAPENTIN 300 MG CAPSULE PO SCH ×3 (08:13→16:49)
[2016-09-28] MEDS: PHYTONADIONE 10 MG/1 ML AMPUL SQ SCH (08:14)
[2016-09-28] MEDS: LORAZEPAM 2 MG/1 ML VIAL IV PRN ×3 (08:21→21:36)
[2016-09-28 08:28] LABS: HEMOGLOBIN 8.5 G/DL (12.0-16.0); MEAN CORPUSCULAR HGB CONC 32 g/dL (32.0-37.0); MEAN CORPUSCULAR VOLUME 82.6 FL (81.0-99.0); RED BLOOD CELL COUNT(AUTO) 3.27 MIL/UL (4.2-5.4)
[2016-09-28 08:31] LABS: WHITE BLOOD COUNT (AUTO) 2.3 K/UL (4.0-11.2)
[2016-09-28 08:34] LABS: PLATELET COUNT (AUTO) 28 K/UL (150-450)
[2016-09-28] MEDS: CIPROFLOXACIN-HC OTIC DROP 10 ML BOTTLE RIGHT EAR SCH ×2 (09:37→16:50)
[2016-09-28 10:36] LABS: BAND % (MANUAL) 11 % (0-10); EOSINOPHILS % (MANUAL) 3 % (0-8); LYMPHOCYTES % (MANUAL) 18 % (20-40); MONOCYTES % (MANUAL) 18 % (2-10); MYELOCYTES % 1 % (0-0); NEUTROPHILS % (MANUAL) 49 % (42-75)
[2016-09-28] MEDS ORDERED: PIPERACILLIN/TAZOBACTAM/D5W 50 ML IV SCH (11:30)
[2016-09-28] MEDS ORDERED: POTASSIUM CHLORIDE 20 MEQ TAB.PRT.SR PO ONE (12:15)
[2016-09-28] MEDS: MEROPENEM 1 G in IV NORMAL SALINE 100 ML IV SCH ×2 (14:11→21:36)
--- NOTE | 2016-09-28 15:35 | NUR ---
PATIENT INS BED ALERT WATCING TV.. NO S/S OF DISTRESS NOTED
--- NOTE | 2016-09-28 15:36 | NUR ---
PATIENT INS BED ALERT WATCHING TV. NO S/S OF DISTRESS NOTED. DENIED PAIN. RECTAL ACTIVE BLEEDING DURING BM, LAB VALUES STILL CRITICAL DR. FOSS AND OWNER SPA DIRECTOR. JEONG AWARE. GENERALIZED WEAKNESS, NO SOB. O2 SAT >94%. PLASMA AND PLATELETS ORDERED. ONE PLASMA INFUSED ALREADY. NO S/S OF DISTRESS NOTED, WELL TOLERATED, V/S WN. SECOND BAG OF PLASMA INFUSING NOW. WILL CONTINUE MONITORING FOR ANY SIGNS AND SYMPTOMS OF REACTION.
[2016-09-28] MEDS ORDERED: NEUTRA PHOS PACKET PO ONE (15:45)
[2016-09-28] MEDS: ACETAMINOPHEN 325 MG TABLET PO PRN (16:49)
--- NOTE | 2016-09-28 18:09 | NUR ---
PLASMA AND PLATELET INFUSED. NO S/S OF REACTION NOTED. V/S WNL. PATIENT CONTINUE HAVING RECTAL BLEEDING. SOME BRUISING AND MOTTLED SKIN NOTED IN HER LEGS AND ARMS DUE TO PATIENTS CONDITION. BONE MARROW BIOPSY WILL BE DONE TOMORROW BY DR. FOSS, REPORT WILL BE ENDORSE TO NEXT SHIFT NURSE. PATIENT CONTINUING HAVING GENERALIZED WEAKNESS, NEED BEDPAN AND BED COMMODE WITH ASSISTANCE. SAFETY AND COMFORT PROVIDED BY STAFF DURING THE DAY. WILL CONTINUE MONITORING.
[2016-09-28] MEDS: IV NS 1000 ML 1,000 ML IV PRN (18:35)
--- NOTE | 2016-09-28 20:00 | NUR ---
PATIENT RECEIVED RESTING COMFORTABLE IN BED. PT ON IV FLUIDS RUNNING NS AT 75ML/HR, INTACT AND PATENT. OBSERVED TO BE JAUNDICE AND COLOR. PT IS AOX3 BUT FORGETFUL AT TIMES. MD AWARE OF PT LAB VALUES. EDUCATED TO MAKE USE OF CALL BUTTON FOR STAFF ASSISTANCE. BED IN LOW AND LOCKED POSITION, CALL LIGHT WITHIN REACH. SAFETY MEASURES MAINTAINED.
--- NOTE | 2016-09-28 22:00 | NUR ---
PT C/O ANXIETY REQUESTING ATIVAN PRN ORDERED. PATIENT ABLE TO URINATE WITH USE OF BEDPAN, NOTED URINE TO BE ERNA/TEA COLOR. NO ACUTE DISTRESS NOTED. WILL CONTINUE TO MONITOR FOR SAFETY.
--- NOTE | 2016-09-28 22:15 | NUR ---
ERROR IN PYXIS PT GIVEN ATIVAN 2MG IV ORDERED. WILL NOTIFY PHARMACY.
[2016-09-28] MEDS: TRAZODONE 50 MG TABLET PO SCH (23:18)
[2016-09-29] MEDS: ACETAMINOPHEN 325 MG TABLET PO PRN (01:01)
--- NOTE | 2016-09-29 03:00 | NUR ---
PT OBSERVED SLEEPING IN BED, AWAKE INTERMITTENTLY THROUGH OUT THE NIGHT REQUESTING BED MARIE. PT URINE OBSERVED TO BE YELLOW/TEA COLOR, NO BLEEDING NOTED. REMAINS JAUNDICE IN COLOR, NO ACUTE DISTRESS NOTED. REMAINS ON IV FLUIDS AT 75ML/HR, INTACT AND PATENT. SAFETY MEASURES MAINTAINED.
[2016-09-29 04:00] VITALS: BP 131/82
[2016-09-29] MEDS: PANTOPRAZOLE SODIUM 40 MG TABLET.DR PO SCH (06:07)
[2016-09-29] MEDS: MEROPENEM 1 G in IV NORMAL SALINE 100 ML IV SCH ×2 (06:08→13:48)
[2016-09-29 06:53] LABS: HEMATOCRIT 25.1 % (37-47); HEMOGLOBIN 8.1 G/DL (12.0-16.0); MEAN CORPUSCULAR HEMOGLOBIN 26.5 UUG (27.0-31.0); MEAN CORPUSCULAR HGB CONC 32 g/dL (32.0-37.0); MEAN CORPUSCULAR VOLUME 82.7 FL (81.0-99.0); RED BLOOD CELL COUNT(AUTO) 3.04 MIL/UL (4.2-5.4)
--- NOTE | 2016-09-29 06:53 | NUR ---
PATIENT IN BED AWAKE AND COOPERATIVE. IV FLUIDS IN LEFT FOREARM INTACT AND PATENT. ASSISTED WITH USE OF BEDPAN THIS AM. NO ACUTE DISTRESS NOTED. SAFETY MEASURES MAINTAINED.
[2016-09-29] MEDS ORDERED: LIDOCAINE HCL 1% 20 ML VIAL IJ PRN ×2 (07:00→08:00)
[2016-09-29 07:07] LABS: PLATELET COUNT (AUTO) 57 K/UL (150-450); WHITE BLOOD COUNT (AUTO) 2.3 K/UL (4.0-11.2)
[2016-09-29 07:16] LABS: ALANINE AMINOTRANSFERASE 20 U/L (14-59); ALKALINE PHOSPHATASE 179 U/L (50-136); ASPARTATE AMINOTRANSFERASE 116 U/L (15-37); BILIRUBIN,DIRECT 7.5 mg/dL (0.0-0.2); BILIRUBIN,TOTAL 9.5 mg/dL (0.2-1.0); CARBON DIOXIDE 25 mmol/L (21-32); CHLORIDE 106 mmol/L (98-107); CREATININE 0.4 mg/dL (0.6-1.3); GLUCOSE 79 mg/dL (74-106); PHOSPHOROUS 1.4 mg/dL (2.5-4.9); POTASSIUM 3.4 mmol/L (3.5-5.1); TOTAL PROTEIN, SERUM 5.9 g/dL (6.4-8.2); UREA NITROGEN, BLOOD 2 mg/dL (7-18)
[2016-09-29 07:58] LABS: BAND % (MANUAL) 4 % (0-10); BASOPHILS % (MANUAL) 1 % (0-2); EOSINOPHILS % (MANUAL) 2 % (0-8); LYMPHOCYTES % (MANUAL) 25 % (20-40); METAMYELOCYTES % 2 % (0-1); MONOCYTES % (MANUAL) 14 % (2-10); MYELOCYTES % 1 % (0-0); NEUTROPHILS % (MANUAL) 51 % (42-75)
[2016-09-29] MEDS: THIAMINE HCL 100 MG TABLET PO SCH (09:12)
[2016-09-29] MEDS: ESCITALOPRAM OXALATE 10 MG TABLET PO SCH (09:12)
[2016-09-29] MEDS: PHYTONADIONE 10 MG/1 ML AMPUL SQ SCH (09:12)
[2016-09-29] MEDS: GABAPENTIN 300 MG CAPSULE PO SCH ×3 (09:12→16:14)
[2016-09-29] MEDS: CIPROFLOXACIN-HC OTIC DROP 10 ML BOTTLE RIGHT EAR SCH ×2 (09:13→16:14)
[2016-09-29] MEDS: LORAZEPAM 2 MG/1 ML VIAL IV PRN ×2 (09:18→16:16)
[2016-09-29 09:28] VITALS: BP 122/60
[2016-09-29] MEDS ORDERED: POTASSIUM CHLORIDE 20 MEQ TAB.PRT.SR PO ONE (09:45)
[2016-09-29] MEDS: IV NS 1000 ML 1,000 ML IV PRN (10:35)
[2016-09-29 11:34] VITALS: BP 118/64
[2016-09-29 15:10] VITALS: BP 124/70
[2016-09-29] MEDS ORDERED: NEUTRA PHOS PACKET PO ONE (15:15)
[2016-09-29] MEDS ORDERED: LEVOFLOXACIN 500 MG TABLET PO SCH (17:45)
[2016-09-29 18:11] LABS: HEMATOCRIT 27.5 % (37-47); HEMOGLOBIN 8.8 G/DL (12.0-16.0)
--- NOTE | 2016-09-29 18:30 | NUR ---
Pt had 3x bloody stool bright red. Dr wen winkler notified earlier this am and no new order received. Pt had been continent going to the bathroom. PT tolerated bone marrow biopsy with dr mckeon. No bleed on back site covered with band aid. Pt is in no acute distress. Pt was on reverse isolation through out shift. Call light is within reach.
--- NOTE | 2016-09-29 19:45 | NUR ---
PATIENT RECEIVED AWAKE, IN NO APPARENT DISTRESS. ABLE TO MAKE NEEDS KNOWN. NO C/O PAIN AT THIS MOMENT. IV INTACT AND PATENT, IVF INFUSING AT 75ML/HR. PT EDUCATED TO USE CALL LIGHT FOR ASSISTANCE, CALL LIGHT IS WITHIN REACH. BED IN LOW/LOCKED POSITION, SAFETY MEASURES IN PLACE. ON REVERSE ISOLATION, OBSERVED. WILL CONTINUE TO MONITOR.
[2016-09-29 20:00] VITALS: BP 124/81
[2016-09-29] MEDS: TRAZODONE 50 MG TABLET PO SCH (21:16)
[2016-09-29] MEDS: AMOXICILLIN-CLAVUL 875-125MG TABLET PO SCH (21:16)
[2016-09-30] MEDS: IV NS 1000 ML 1,000 ML IV PRN (04:38)
[2016-09-30 05:10] VITALS: BP 120/65
[2016-09-30] MEDS: PANTOPRAZOLE SODIUM 40 MG TABLET.DR PO SCH (06:06)
--- NOTE | 2016-09-30 07:02 | NUR ---
PT RESTING IN BED. NO ACUTE DISTRESS NOTED. VS STABLE. NO C/O PAIN OR ANXIETY/AGITATION PER SHIFT. BRP WITH ASSIST, PT UNSTEADY, CONTINENT. FALL PRECAUTIONS MAINTAINED. SAFETY MAINTAINED. ALL NEEDS MET. CALL LIGHT IN REACH. CONTINUE TO MONITOR.
[2016-09-30 07:18] LABS: CARBON DIOXIDE 24 mmol/L (21-32); CHLORIDE 103 mmol/L (98-107); CREATININE 0.5 mg/dL (0.6-1.3); GLUCOSE 85 mg/dL (74-106); PHOSPHOROUS 1.4 mg/dL (2.5-4.9); POTASSIUM 3.8 mmol/L (3.5-5.1); UREA NITROGEN, BLOOD 2 mg/dL (7-18)
--- NOTE | 2016-09-30 08:00 | NUR ---
RECEIVED PATIENT IN BED AWAKE ALERT AND ORIENTED,DENIES PAIN OR DISCOMFORTS AT THIS TIME.ASSISTED PATIENT INTO THE BATHROOM NOTED THAT SHE IS INCONTINENT OF URINE AND STOOL ASSISTED WITH CLEAN UP AND BACK TO BED BREAKFAST SERVED APPETITE IS POOR AT THIS TIME STATED THAT SHE IS NOT HUNGRY.IV FLUIDS REMAIN IN PROGRSS ORDERED LEFT ANTECUBITAL WITH NO S/S OF INFILTERATION AT THIS TIME.REMAIN ON REVERSE ISOLATION AT THIS TIME AND WILL CONTINUE TO OBSERVE.
[2016-09-30] MEDS: GABAPENTIN 300 MG CAPSULE PO SCH ×3 (08:06→17:22)
[2016-09-30] MEDS: AMOXICILLIN-CLAVUL 875-125MG TABLET PO SCH ×2 (08:06→20:42)
[2016-09-30] MEDS: ESCITALOPRAM OXALATE 10 MG TABLET PO SCH (08:06)
[2016-09-30] MEDS: THIAMINE HCL 100 MG TABLET PO SCH (08:06)
[2016-09-30] MEDS: CIPROFLOXACIN-HC OTIC DROP 10 ML BOTTLE RIGHT EAR SCH ×2 (08:10→17:19)
[2016-09-30] MEDS ORDERED: NEUTRA PHOS PACKET PO ONE (09:15)
--- NOTE | 2016-09-30 09:41 | NUR ---
PHOSPHORUS LEVEL AT THIS TIME IS 1.4 WITH NEW ORDER TO REPLACE.
[2016-09-30 09:57] LABS: HEMATOCRIT 25.4 % (37-47); HEMOGLOBIN 8.1 G/DL (12.0-16.0); MEAN CORPUSCULAR HEMOGLOBIN 26.6 UUG (27.0-31.0); MEAN CORPUSCULAR HGB CONC 32 g/dL (32.0-37.0); PLATELET COUNT (AUTO) 61 K/UL (150-450); RED BLOOD CELL COUNT(AUTO) 3.06 MIL/UL (4.2-5.4); WHITE BLOOD COUNT (AUTO) 2.7 K/UL (4.0-11.2)
[2016-09-30] MEDS: LORAZEPAM 2 MG/1 ML VIAL IV PRN ×3 (10:27→21:43)
[2016-09-30 10:28] LABS: BAND % (MANUAL) 13 % (0-10); LYMPHOCYTES % (MANUAL) 30 % (20-40); MONOCYTES % (MANUAL) 9 % (2-10); NEUTROPHILS % (MANUAL) 48 % (42-75)
--- NOTE | 2016-09-30 11:34 | NUR ---
RECEIVED RESULT FROM [facility] PATIENT IS POSITIVE FOR C DIFF TOXINS IN HER STOOL DR PHILIPPE BEARDEN NOTIFIED WITH NEW ORDERS AND NOTED.
[2016-09-30 12:00] VITALS: BP 118/67
[2016-09-30] MEDS: VANCOMYCIN FOR PO/GT/NG USE PO SCH ×2 (12:39→17:19)
[2016-09-30 16:00] VITALS: BP 113/78
--- NOTE | 2016-09-30 18:41 | NUR ---
MEDICATED WITH ATIVAN TWO TIMES THIS SHIFT PER HER REQUEST STATED THAT SHE IS ANXIOUS AND HELPFUL.
[2016-09-30 19:26] LABS: HEMATOCRIT 24.2 % (37-47); HEMOGLOBIN 7.5 G/DL (12.0-16.0)
--- NOTE | 2016-09-30 19:35 | NUR ---
PT RECEIVED IN BED, ASLEEP AND RESTING. V/S STABLE. NO SIGNS OF ACUTE DISTRESS. NO COMPLAINTS OF PAIN AT THIS TIME. SAFETY MEASURES INITIATED. CALL LIGHT WITHIN REACH. WILL CONTINUE TO MONITOR.
[2016-09-30 20:26] VITALS: BP 125/62
--- NOTE | 2016-09-30 20:30 | NUR ---
H&H NOTED TO BE HGB 7.5 & HCT 24.2, MD PHILIPPE BEARDEN MADE AWARE, PER MD TO HOLD ON BLOOD TRANSFUSION, ORDER FOR H&H IN THE AM RECEIVED. NOTED AND CARRIED OUT. WILL CONTINUE MONITORING.
[2016-09-30] MEDS: TRAZODONE 50 MG TABLET PO SCH (20:42)
[2016-10-01] VITALS (14 sets, daily range): BP systolic 107–152; BP diastolic 66–82
[2016-10-01] MEDS: IV NS 1000 ML 1,000 ML IV PRN ×2 (00:38→16:12)
[2016-10-01] MEDS: VANCOMYCIN FOR PO/GT/NG USE PO SCH ×4 (00:38→17:07)
[2016-10-01] MEDS: PANTOPRAZOLE SODIUM 40 MG TABLET.DR PO SCH (06:00)
--- NOTE | 2016-10-01 06:34 | NUR ---
END OF SHIFT NOTES. PT ASLEEP INTERMITTENTLY THROUGHOUT SHIFT. NEEDS ATTENDED. V/S STABLE. NO SIGNS OF ACUTE DISTRESS. NO COMPLAINTS OF PAIN AT THIS TIME. SAFETY MEASURES MAINTAINED. CONTACT PRECAUTIONS MAINTAINED. CALL LIGHT WITHIN REACH. BED ALARM SET.
[2016-10-01 07:16] LABS: HEMOGLOBIN 7.3 G/DL (12.0-16.0)
--- NOTE | 2016-10-01 07:20 | NUR ---
RECEIVED RESULT FROM THE LAB H/H IS 7.3/23.[address] GARCIA INFORMED HIM AND HE STATED OKAY WILL SEE PATIENT.PATIENT IS RESTING IN HER ROOM WITH IVF ORDERED FEELS WEAK REMINDED PATIENT TO CALL FOR ASSISTANCE TO PREVENT FALLS AND SHE EXPRESSED UNDERSTANDING BED ALARM ACTIVATED.
[2016-10-01 07:26] LABS: HEMATOCRIT 23.4 % (37-47)
[2016-10-01] MEDS: LORAZEPAM 2 MG/1 ML VIAL IV PRN ×3 (08:34→21:36)
[2016-10-01] MEDS: THIAMINE HCL 100 MG TABLET PO SCH (08:34)
[2016-10-01] MEDS: ESCITALOPRAM OXALATE 10 MG TABLET PO SCH (08:34)
[2016-10-01] MEDS: GABAPENTIN 300 MG CAPSULE PO SCH ×3 (08:34→16:05)
[2016-10-01] MEDS: AMOXICILLIN-CLAVUL 875-125MG TABLET PO SCH ×2 (08:34→20:48)
[2016-10-01] MEDS: CIPROFLOXACIN-HC OTIC DROP 10 ML BOTTLE RIGHT EAR SCH ×2 (08:35→16:06)
[2016-10-01] MEDS ORDERED: POTASSIUM PHOSPHATE MM 7.5 MMOL in IV DEXTROSE 5% 100 ML IV SCH (09:15)
--- NOTE | 2016-10-01 09:49 | NUR ---
NEW ORDER NOTED FROM ALEJANDRO TO TRANSFUSE PATIENT WITH 2 UNITS PRBC TODAY AND NOTED PATIENT AWARE.
[2016-10-01 10:56] LABS: ALANINE AMINOTRANSFERASE 15 U/L (14-59); ALKALINE PHOSPHATASE 177 U/L (50-136); ASPARTATE AMINOTRANSFERASE 94 U/L (15-37); BILIRUBIN,TOTAL 11.5 mg/dL (0.2-1.0); CARBON DIOXIDE 22 mmol/L (21-32); CHLORIDE 104 mmol/L (98-107); CREATININE 0.5 mg/dL (0.6-1.3); GLUCOSE 102 mg/dL (74-106); MAGNESIUM 1.5 mg/dL (1.8-2.4); PHOSPHOROUS 1.8 mg/dL (2.5-4.9); POTASSIUM 3.4 mmol/L (3.5-5.1); TOTAL PROTEIN, SERUM 5.6 g/dL (6.4-8.2); UREA NITROGEN, BLOOD 3 mg/dL (7-18)
[2016-10-01 11:08] LABS: HEMOGLOBIN 7.3 G/DL (12.0-16.0); MEAN CORPUSCULAR HEMOGLOBIN 26.1 UUG (27.0-31.0); MEAN CORPUSCULAR HGB CONC 32 g/dL (32.0-37.0); MEAN CORPUSCULAR VOLUME 82.9 FL (81.0-99.0); PLATELET COUNT (AUTO) 68 K/UL (150-450); RED BLOOD CELL COUNT(AUTO) 2.78 MIL/UL (4.2-5.4); WHITE BLOOD COUNT (AUTO) 2.5 K/UL (4.0-11.2)
[2016-10-01 11:17] LABS: HEMATOCRIT 23.1 % (37-47)
[2016-10-01 11:54] LABS: BAND % (MANUAL) 4 % (0-10); EOSINOPHILS % (MANUAL) 1 % (0-8); LYMPHOCYTES % (MANUAL) 30 % (20-40); METAMYELOCYTES % 1 % (0-1); MONOCYTES % (MANUAL) 12 % (2-10); NEUTROPHILS % (MANUAL) 52 % (42-75)
[2016-10-01] MEDS ORDERED: POTASSIUM PHOSPHATE MM 7.5 MMOL in IV DEXTROSE 5% 100 ML IV ONE (13:15)
[2016-10-01] MEDS: MAGNESIUM SULFATE/D5W 100 ML IV SCH ×2 (13:35→14:59)
--- NOTE | 2016-10-01 14:00 | NUR ---
ANOTHER HEPLOCK INSERTED TO HER RIGHT FOREARM BECAUSE SHE HAS NUMEROUS PIGGY BACKS TO BE GIVEN IN ADDITION TO THE BLOOD TRANSFUSSION.
[2016-10-01 14:11] LABS: HEPATITIS A AB, IgM Negative (Negative); HEPATITIS A AB, TOTAL Positive (Negative); HEPATITIS B SURFACE AB Reactive (.); HEPATITIS B SURFACE AG Negative (Negative)
--- NOTE | 2016-10-01 14:15 | NUR ---
FIRST UNIT OF BLOOD TRANSFUSSION STARTED ORDERED AND WILL MONITOR FOR ADVERSE OR ALLERGIC REACTIONS IN 15 MINUTES.
--- NOTE | 2016-10-01 15:52 | NUR ---
BLOOD TRANSFUSSION REMAINS IN PROGRESS ORDERED WITH NO ADVERSE OR ALLERGIC REACTIONS AT THIS TIME.WILL CONTINUE TO OBSERVE.
[2016-10-01] MEDS: MULTIVITAMINS,THERAPEUTIC TABLET PO SCH (16:05)
[2016-10-01] MEDS: FOLIC ACID 1 MG TABLET PO SCH (16:05)
--- NOTE | 2016-10-01 17:30 | NUR ---
FIRST UNIT OF BLOOD TRANSFUSSION COMPLETED WITH NO ADVERSE OR ALLERGIC REACTIONS AT THIS TIME.RESTING WITH NO COMPLAINTS AT THIS TIME.
[2016-10-01] MEDS: TRAZODONE 50 MG TABLET PO SCH (20:49)
[2016-10-01] MEDS: ACETAMINOPHEN 325 MG TABLET PO PRN (21:00)
[2016-10-01] MEDS: ACIDOPHILUS/BULGARICUS CHEW TAB PO SCH (21:01)
--- NOTE | 2016-10-01 21:02 | NUR ---
PT WITH TEMP OF 100.5, MD BARRY MADE AWARE, PER TO "HOLD 2ND UNIT OF BLOOD AT THIS TIME, GIVE TYLENOL 650 MG PO NOW." CARRIED OUT. PER TO RECHECK TEMP IN 3O MIN, IF <100, OKAY TO TRANSFUSE BLOOD. WILL REASSESS. WILL CONTINUE TO MONITOR.
--- NOTE | 2016-10-01 22:00 | NUR ---
PATIENT'S TEMP 98.6 AT THIS TIME AND PT REQUESTING MALLORY CATHETER, MD BARRY MADE AWARE, PER OKAY TO TRANSFUSE BLOOD AND TO INSERT MALLORY, ORDER RECEIVED AND NOTED. WILL CARRY OUT. Addendum: 10/01/16 at 2219 by MITZI ORO RN PER PATIENT, PT URINATES "EVERY FIVE MINUTES AND I CAN'T MAKE IT TO THE BATHROOM, I'M WET ALL THE TIME." MADE AWARE WITH NEW ORDER. SEE ABOVE.
--- NOTE | 2016-10-01 22:21 | NUR ---
2ND UNIT OF BLOOD STARTED AND INFUSING, NO ADVERSE REACTIONS NOTED. WILL CONTINUE CLOSE MONITORING.
[2016-10-02] MEDS: VANCOMYCIN FOR PO/GT/NG USE PO SCH ×3 (00:24→13:57)
[2016-10-02 01:00] VITALS: BP 110/70
--- NOTE | 2016-10-02 01:04 | NUR ---
2ND UNIT OF BLOOD TRANSFUSION COMPLETED WITH NO ADVERSE/ALLERGIC REACTIONS OBSERVED/REPORTED AT THIS TIME. WILL CONTINUE TO MONITOR.
[2016-10-02 04:30] VITALS: BP 113/75
[2016-10-02] MEDS: PANTOPRAZOLE SODIUM 40 MG TABLET.DR PO SCH (06:04)
[2016-10-02] MEDS: ACIDOPHILUS/BULGARICUS CHEW TAB PO SCH ×2 (06:04→13:57)
--- NOTE | 2016-10-02 06:25 | NUR ---
END OF SHIFT NOTE: PT RESTING IN BED, NO ACUTE DISTRESS NOTED. SLEPT WELL PER SHIFT. COMPLIANT WITH CARE/MEDS. VS STABLE. AFEBRILE THIS AM. IV INTACT AND PATENT, IVF INFUSING ORDERED, TOLERATING WELL. F/C IN PLACE, DRAINING TEA COLOR URINE. ALL NEEDS MET. ON CONTACT/REVERSE ISOLATION OBSERVED, MAINTAINED. CALL LIGHT IN REACH AND SAFETY MAINTAINED. CONTINUE PLAN OF CARE.
[2016-10-02 07:13] LABS: MEAN CORPUSCULAR HGB CONC 33 g/dL (32.0-37.0); MEAN CORPUSCULAR VOLUME 85.2 FL (81.0-99.0); PLATELET COUNT (AUTO) 76 K/UL (150-450)
[2016-10-02 07:26] LABS: ALANINE AMINOTRANSFERASE 16 U/L (14-59); ALKALINE PHOSPHATASE 179 U/L (50-136); ASPARTATE AMINOTRANSFERASE 107 U/L (15-37); BILIRUBIN,TOTAL 13.8 mg/dL (0.2-1.0); CARBON DIOXIDE 23 mmol/L (21-32); CHLORIDE 105 mmol/L (98-107); CREATININE 0.4 mg/dL (0.6-1.3); GLUCOSE 93 mg/dL (74-106); MAGNESIUM 1.9 mg/dL (1.8-2.4); PHOSPHOROUS 2.7 mg/dL (2.5-4.9); POTASSIUM 3.3 mmol/L (3.5-5.1); TOTAL PROTEIN, SERUM 5.7 g/dL (6.4-8.2); UREA NITROGEN, BLOOD 3 mg/dL (7-18)
[2016-10-02 07:28] LABS: HEMATOCRIT 30.3 % (37-47); HEMOGLOBIN 9.9 G/DL (12.0-16.0); RED BLOOD CELL COUNT(AUTO) 3.55 MIL/UL (4.2-5.4); WHITE BLOOD COUNT (AUTO) 3.3 K/UL (4.0-11.2)
[2016-10-02] MEDS: AMOXICILLIN-CLAVUL 875-125MG TABLET PO SCH (08:10)
[2016-10-02] MEDS: ESCITALOPRAM OXALATE 10 MG TABLET PO SCH (08:10)
[2016-10-02] MEDS: MULTIVITAMINS,THERAPEUTIC TABLET PO SCH (08:10)
[2016-10-02] MEDS: THIAMINE HCL 100 MG TABLET PO SCH (08:10)
[2016-10-02] MEDS: GABAPENTIN 300 MG CAPSULE PO SCH ×2 (08:11→13:57)
[2016-10-02] MEDS: FOLIC ACID 1 MG TABLET PO SCH (08:11)
[2016-10-02] MEDS: CIPROFLOXACIN-HC OTIC DROP 10 ML BOTTLE RIGHT EAR SCH (08:18)
[2016-10-02 10:15] LABS: BAND % (MANUAL) 3 % (0-10); LYMPHOCYTES % (MANUAL) 19 % (20-40); MONOCYTES % (MANUAL) 24 % (2-10); NEUTROPHILS % (MANUAL) 54 % (42-75)
[2016-10-02] MEDS ORDERED: POTASSIUM CHLORIDE 20 MEQ TAB.PRT.SR PO ONE (10:15)
[2016-10-02 12:02] VITALS: BP 114/78
[2016-10-02] MEDS: LORAZEPAM 2 MG/1 ML VIAL IV PRN (12:17)
[2016-10-02] MEDS ORDERED: VANC500V PO (13:58)
[2016-10-02] MEDS ORDERED: MULT-24 PO (13:58)
[2016-10-02] MEDS ORDERED: ACID1TAB4 PO (13:58)
[2016-10-02] MEDS ORDERED: ESCI10TA PO (13:58)
[2016-10-02] MEDS ORDERED: CIPR10DR RIGHT EAR (13:58)
[2016-10-02] MEDS ORDERED: PANT40TA2 PO (13:58)
[2016-10-02] MEDS ORDERED: THIA100T13 PO (13:58)
[2016-10-02] MEDS ORDERED: LORA2TAB PO (13:58)
[2016-10-02] MEDS ORDERED: TRAZ-144 PO (13:58)
[2016-10-02] MEDS ORDERED: GABA-534 PO (13:58)
[2016-10-02] MEDS ORDERED: FOLI1TAB16 PO (13:58)
--- NOTE | 2016-10-02 15:52 | NUR ---
Patient being discharged to [facility]. Patient much more alert and oriented than when first admitted. Labs are stable. Vitals stable. No noted distress. Will continue to monitor.
[2016-10-02 16:15] VITALS: BP 113/77
== END 2016-10-02 16:44 | DRG 377 ==
LOC: ER 18:47 → TELE 21:01 → MED 09-27 14:50
PROVIDERS: ADMIT Nurse Practitioner Acute Care; ATTEND Nurse Practitioner Acute Care
PROC: 30233N1 Transfusion of Nonautologous Red Blood Cells into Peripheral Vein, Percutaneous Approach (ICD-10-PCS; principal; 2016-09-26)
PROC: 30233K1 Transfusion of Nonautologous Frozen Plasma into Peripheral Vein, Percutaneous Approach (ICD-10-PCS; 2016-09-28)
PROC: 30233R1 Transfusion of Nonautologous Platelets into Peripheral Vein, Percutaneous Approach (ICD-10-PCS; 2016-09-28)
PROC: 07DR3ZX Extraction of Iliac Bone Marrow, Percutaneous Approach, Diagnostic (ICD-10-PCS; 2016-09-29)
DX: K25.0 Acute gastric ulcer with hemorrhage (principal); E43 Unspecified severe protein-calorie malnutrition; R57.1 Hypovolemic shock; D61.818 Other pancytopenia; A04.7 Enterocolitis due to Clostridium difficile; F10.239 Alcohol dependence with withdrawal, unspecified; K76.6 Portal hypertension; F33.2 Major depressive disorder, recurrent severe without psychotic features; E87.2 Acidosis; D68.9 Coagulation defect, unspecified; F41.9 Anxiety disorder, unspecified; Y90.9 Presence of alcohol in blood, level not specified; K70.31 Alcoholic cirrhosis of liver with ascites; D64.9 Anemia, unspecified; Z80.8 Family history of malignant neoplasm of other organs or systems; K64.9 Unspecified hemorrhoids; H66.90 Otitis media, unspecified, unspecified ear; I10 Essential (primary) hypertension; E83.42 Hypomagnesemia; R16.1 Splenomegaly, not elsewhere classified; E87.8 Other disorders of electrolyte and fluid balance, not elsewhere classified
CPT/HCPCS: 36415; 70030-TC; 71010; 76700; 83605; 83690; 83735; 84100; 84443; 85018; 85025; 85610; 85730; 86625; 86704; 86705; 86706; 86708; 86709; 86803; 86850; 86900; 86901; 86920; 87040; 87046; 87177; 87340; 93005; 97110; 97116; 97161; 97165; 97530; 97535; C1758; J1956; J2060; J2185; J3370; J3430; J3475; J3490; J7030; J7050; J7060; P9016-BL; P9017-BL; P9021; P9035-BL

== ENCOUNTER 2016-10-02 16:45 | Inpatient (IN) | payer BC, OTHER ==
[~2016-10-02] VITALS: Ht 172.7 cm; Wt 72.6 kg
[~2016-10-02 16:45] MED LIST changes: +ACET-2154 PO; +ACID1TAB4 PO; +AMOX-430 PO; +ATIVAN PO; +CIPR10DR RIGHT EAR; +CLON0.1T PO; +DICY20TA11 PO; +DIPH25CA83 PO; +DOCU-170 PO; +ESCI10TA PO; +FERR325T28 PO; +FOLI1TAB16 PO; +GABA-534 PO; +HYDR-3028 PO; +IBUP-1481 PO; +LOPE2CAP PO; +LORA2TAB PO; +MAG-55 PO; +MAGNESIUM PO; +MULT-24 PO; +MULT-70 PO; +PANT40TA2 PO; +POLY17PO4 PO; +PROTONIX IV; +THIA100T13 PO; +VANC500V PO; +ZOFRAN IM
[2016-10-02] MEDS ORDERED: ONDANSETRON 4 MG/2 ML VIAL IM PRN (17:30)
[2016-10-02] MEDS ORDERED: MAGNESIUM HYDROXIDE 30 ML LIQUID UDC PO PRN (17:30)
[2016-10-02] MEDS ORDERED: MAG HYDROX/AL HYDROX/SIMETH 30 ML LIQUID UDC PO PRN (17:30)
[2016-10-02] MEDS ORDERED: IBUPROFEN 400 MG TABLET PO PRN (17:30)
[2016-10-02] MEDS ORDERED: diphenhydrAMINE 50 MG CAPSULE PO PRN (17:30)
[2016-10-02] MEDS ORDERED: LOPERAMIDE HCL 2 MG CAPSULE PO PRN ×2 (17:30)
[2016-10-02] MEDS ORDERED: DICYCLOMINE HCL 20 MG TABLET PO PRN (17:30)
[2016-10-02] MEDS ORDERED: LORAZEPAM 2 MG/1 ML VIAL IM PRN (17:30)
[2016-10-02] MEDS ORDERED: LORAZEPAM 1 MG TABLET PO PRN (17:30)
[2016-10-02] MEDS ORDERED: MIRALAX 17 GM POWD.PACK PO PRN (17:30)
--- NOTE | 2016-10-02 17:31 | NUR ---
PRE ASSESSMENT: ASSESSED PT IN INTAKE. BP 109/64 P 81 R 96.9 R 18 95% O2 SAT. PT IS IN W/C HER GAIT IS UNSTEADY. SHE IS JAUNDICED. SHE WAS ADMITTED FOR DETOX FROM ETOH ON 09/25 BUT WAS TRANSFERRED TO MED/SURG FLOOR FOR GI BLEED. BLOOD TRANSFUSIONS WERE ADMINISTERED ON MED SURG AND VANDANA MARTÍNEZ FROM MED SURG GAVE REPORT. PT HAS BEEN RECEIVING ATIVAN 2 MG IV Q 8 HRS PRN. SHE SHE BEEN GETTING AN AVERAGE OF 4 MG PER DAY. PT STATES SHE FEELS WEAK BUT STRONGER THEN HER ADMISSION HERE ON THE . SHE DENIES ALLERGIES ABND SHE DENIES SMONKING CIGARETTES. PT WILL BE PLACED ON A 1:1 FOR SAFETY WHEN SHE ARRIVES ON UNIT. Addendum: 10/02/16 at 1828 by EDGAR CORNEJO RN CONTACT ISOLATION NOTED FOR C DIFF.
[2016-10-02 17:38] VITALS: BP 109/64
[2016-10-02] MEDS: VANCOMYCIN FOR PO/GT/NG USE PO SCH (18:39)
--- NOTE | 2016-10-02 19:00 | NUR ---
ADMISSION NOTE ENDORSED BY DAY SHIFT NURSE. PATIENT IS A 36 YEAR OLD FEMALE, ADMITTED FOR ETOH DEPENDENCE. PATIENT WAS TRANSFERRED IN THE UNIT FROM MED-SURG DEPARTMENT . THE PATIENT WAS ORIGINALLY ADMITTED ON 09/25/16 FOR MEDICALLY SUPERVISED WITHDRAWAL FROM ETOH. PRIOR TO 09/25/16, SHE WAS DRINKING 2 BOTTLES OF WINE DAILY FOR A YEAR. LAST DRINK WAS 1 BOTTLE OF WINE PRIOR TO ADMISSION. SHE WAS TRANSFERRED TO 2ND FLOOR DUE TO GI BLEED AND HAD BLOOD TRANSFUSION. PATIENT REPORTED PAST MEDICAL HISTORY OF ANEMIA-BLOOD TRANSFUSION, PERIPHERAL NEUROPATHY,C-DIFF , ANXIETY AND DEPRESSION AND CIRRHOSIS. NO SEIZURE HISTORY. PATIENT REQUESTED TO BE FULL CODE AND ON REGULAR DIET. NO KNOWN ALLERGIES. PER DAY SHIFT NURSE. , SKIN INTACT.NOTED WITH BRUISE ON BILATERAL ARMS . HEIGHT IS 58 AND WEIGHT IS 144 LBS. LUNGS CLEAR AND BOWEL SOUNDS ACTIVE. ABDOMEN SOFT AND NON DISTENDED . PATIENTS FACE IS JAUNDICE. PATIENT WAS PLACED ON 1:1 DUE TO UNSTEADY GAIT AND SAFETY. PATIENT IS ON CONTACT ISOLATION DUE TO C-DIFF. PATIENT IS ON VANCOMYCIN PO. PATIENTS PCP IS DR. MCKEON. TREATMENT HISTORY WAS IN [facility] ON SEPTEMBER 25-September AND IOP FOR 5 DAYS (NOT SURE WHEN). PATIENT WAS PLACED ON FALL/SEIZURE PRECAUTION. SAFETY MEASURES IN PLACE. CALL LIGHT IN REACH. WILL CONTINUE TO MONITOR.
[2016-10-02] MEDS ORDERED: POTASSIUM CHLORIDE 20 MEQ TAB.PRT.SR PO ONE (20:30)
[2016-10-02] MEDS: HYDROXYZINE PAMOATE 25 MG CAPSULE PO PRN (21:26)
[2016-10-02] MEDS: ACIDOPHILUS/BULGARICUS CHEW TAB PO SCH (21:26)
[2016-10-02] MEDS: GABAPENTIN 300 MG CAPSULE PO SCH (21:26)
--- NOTE | 2016-10-02 21:26 | NUR ---
KS VISTARIL ADMINISTRATION PATIENT C/O ANXIETY. PRN VISTARIL GIVEN. WILL MONITOR FOR EFFECTIVENESS
[2016-10-02 21:32] LABS: *URINE HCG, QUAL NEGATIVE (NEGATIVE)
[2016-10-02 21:49] LABS: *AMPHETAMINE, URINE NEGATIVE (NEGATIVE); *BARBITURATE, URINE NEGATIVE (NEGATIVE); *CANNABINOID, URINE NEGATIVE (NEGATIVE); *COCCAINE, URINE NEGATIVE (NEGATIVE); *OPIATE, URINE NEGATIVE (NEGATIVE); *PHENCYCLIDINE SCREEN,URINE NEGATIVE (NEGATIVE)
--- NOTE | 2016-10-02 22:26 | NUR ---
PRN VISTARIL RE-ASSESSMENT PATIENT STATES HER ANXIETY SUBSIDED .WILL CONTINUE TO MONITOR.
[2016-10-03] VITALS: BP 140/70
[2016-10-03] MEDS: ACETAMINOPHEN 325 MG TABLET PO PRN ×2 (00:08→16:46)
--- NOTE | 2016-10-03 00:08 | NUR ---
PRN ATIVAN AND TYLENOL ADMINISTRATION PATIENT C/O ANXIETY, RESTLESS AND UNABLE TO SLEEP BP-140/70 P-105 T-101.6 R- 18 O2 96% . PATIENT WAS GIVEN TYLENOL AND ATIVAN . WILL MONITOR FOR EFFECTIVENESS Addendum: 10/03/16 at 0648 by BRANDEE DALY LVN YONY Rizvi
[2016-10-03] MEDS: LORAZEPAM 1 MG TABLET PO PRN ×2 (00:09→10:22)
[2016-10-03] MEDS: VANCOMYCIN FOR PO/GT/NG USE PO SCH ×4 (00:09→18:26)
--- NOTE | 2016-10-03 01:08 | NUR ---
PRN ATIVAN AND TYLENOL RE-ASSESSMENT PATIENT TEMP 99.0 AT THIS TIME. CIWA 2 . ATIVAN HELPFUL . WILL CONTINUE TO MONITOR.
[2016-10-03 04:00] VITALS: BP 126/86
[2016-10-03] MEDS: ACIDOPHILUS/BULGARICUS CHEW TAB PO SCH ×3 (06:06→21:03)
--- NOTE | 2016-10-03 07:30 | NUR ---
END OF SHIFT NOTE MONITORED PATIENT THROUGHOUT THE SHIFT. PATIENT IS A 36 YEAR OLD FEMALE, ADMITTED FOR ETOH DEPENDENCE. PATIENT IS ON 1:1 FOR UNSTEADY GAIT . ON ANTIBIOTIC VANCOMYCIN FOR C-DIFF, ON CONTACT ISOLATION, STRICTLY OBSERVED. NO ADVERSE REACTION NOTED. ENCOURAGE FLUIDS. PATIENT C/O OF ANXIETY DURING SHIFT. PRN VISTARIL GIVEN AT 2126 , ATIVAN AT 0009 AND HAD FEVER OF 101.6 , PRN TYLENOL GIVEN. EFFECTIVE , TEMPERATURE RECHECKED 99.0. PATIENT HAD 2 EPISODE OF DIARRHEA X2 , SMALLL AMOUNT . PATIENT REFUSED IMODIUM, EDUCATE ON RISK/BENEFITS. PATIENT SLEPT 6 HOURS. FLUID INTAKE2,105 ML. VOIDED X 10 . BM X 2 . LAST CIWA 1 .
--- NOTE | 2016-10-03 07:35 | NUR ---
Start Of Shift Report received. Patient is a 36 year old female, admitted for ETOH dependence. Pt is full code regular diet continues on fall and seizure precautions. Patient is on 1:1 for unsteady gait . Pt is on contact precautions isolation is currently on antibiotic vancomycin for c-diff. Pt was Encourage fluids to facilitate detox process. Last night patient received PRN Vistaril, Ativan 1mg and Tylenol 650mg all medications Effective per warehouse worker 2nd shift nurse. Pts last CIWA was a 1 taken at 0400. Pt slept a total of 6 hours, skin intact. Safety measures in place, call light within reach, side rails up x2, bed locked and in low position. Will continue to monitor and provide care.
[2016-10-03 07:59] LABS: ALANINE AMINOTRANSFERASE 14 U/L (14-59); ALKALINE PHOSPHATASE 177 U/L (50-136); ASPARTATE AMINOTRANSFERASE 104 U/L (15-37); BILIRUBIN,DIRECT 12.6 mg/dL (0.0-0.2); BILIRUBIN,TOTAL 15.6 mg/dL (0.2-1.0); CARBON DIOXIDE 24 mmol/L (21-32); CHLORIDE 104 mmol/L (98-107); CREATININE 0.4 mg/dL (0.6-1.3); GLUCOSE 82 mg/dL (74-106); MAGNESIUM 1.7 mg/dL (1.8-2.4); PHOSPHOROUS 2.3 mg/dL (2.5-4.9); POTASSIUM 3.8 mmol/L (3.5-5.1); TOTAL PROTEIN, SERUM 5.7 g/dL (6.4-8.2); UREA NITROGEN, BLOOD 3 mg/dL (7-18)
[2016-10-03 08:00] VITALS: BP 120/73
[2016-10-03 08:01] LABS: IRON, SERUM 46 ug/dL (50-175)
[2016-10-03 08:34] LABS: HEMATOCRIT 29.9 % (37-47); HEMOGLOBIN 9.9 G/DL (12.0-16.0); MEAN CORPUSCULAR HEMOGLOBIN 28.2 UUG (27.0-31.0); MEAN CORPUSCULAR HGB CONC 33 g/dL (32.0-37.0); MEAN CORPUSCULAR VOLUME 85.4 FL (81.0-99.0); PLATELET COUNT (AUTO) 83 K/UL (150-450); RED BLOOD CELL COUNT(AUTO) 3.51 MIL/UL (4.2-5.4); WHITE BLOOD COUNT (AUTO) 4.6 K/UL (4.0-11.2)
[2016-10-03 08:42] LABS: FERRITIN 90 ng/mL (8-252)
[2016-10-03] MEDS ORDERED: GABAPENTIN 300 MG CAPSULE PO SCH (09:00)
[2016-10-03] MEDS ORDERED: TUBERCULIN,PURIF.PROT.DERIV. 5 TU/0.1 ML TEST ID ONE (09:00)
[2016-10-03 09:09] LABS: BAND % (MANUAL) 6 % (0-10); LYMPHOCYTES % (MANUAL) 23 % (20-40); MONOCYTES % (MANUAL) 9 % (2-10); NEUTROPHILS % (MANUAL) 62 % (42-75)
[2016-10-03] MEDS: MULTIVITAMINS,THERAPEUTIC TABLET PO SCH (10:22)
[2016-10-03] MEDS: FOLIC ACID 1 MG TABLET PO SCH (10:22)
[2016-10-03] MEDS: GABAPENTIN 300 MG CAPSULE PO SCH ×3 (10:22→21:04)
[2016-10-03] MEDS: HYDROXYZINE PAMOATE 25 MG CAPSULE PO PRN ×2 (10:22→21:54)
[2016-10-03] MEDS: THIAMINE HCL 100 MG TABLET PO SCH (10:22)
[2016-10-03] MEDS: CIPROFLOXACIN-HC OTIC DROP 10 ML BOTTLE RIGHT EAR SCH ×2 (10:23→16:47)
[2016-10-03] MEDS: CLONIDINE HCL 0.1 MG TABLET PO PRN ×2 (10:23→21:55)
[2016-10-03 12:00] VITALS: BP 105/68
[2016-10-03] MEDS ORDERED: MAGNESIUM OXIDE 400 MG TABLET PO ONE ×2 (13:00→21:00)
[2016-10-03] MEDS: PENTOXIFYLLINE 400 MG TABLET.SA PO SCH ×2 (13:02→21:03)
[2016-10-03] MEDS ORDERED: NEUTRA PHOS PACKET PO ONE ×2 (15:15→21:00)
[2016-10-03] MEDS ORDERED: LORAZEPAM 1 MG TABLET PO PRN ×2 (15:45)
[2016-10-03 16:00] VITALS: BP 103/66
--- NOTE | 2016-10-03 16:15 | NUR ---
Nursing notes Assisted client to commode for a BM, noted small/soft artem color stool, noted bright blood on wiping paper, client denies been on her menstrual period, she stated "I had 2 stools today before, but no blood." Primary nurse made aware and he notified .
--- NOTE | 2016-10-03 16:46 | NUR ---
PRN Tylenol 650mg Client reports EDMONDS 6/10 at the frontal area, does not radiate, encourage to increase fluid as tolerated. Tylenol 650mg PO administered. call light within reach
--- NOTE | 2016-10-03 17:46 | NUR ---
Reassessment PRN Tylenol 650mg Client reports relief from EDMONDS 06/07, but tolerable. call light within reach
--- NOTE | 2016-10-03 18:36 | NUR ---
SPENCERN Tylenol 650mg Client reports EDMONDS 10/05 at the frontal area, does not radiate, encourage to increase fluid as tolerated. Tylenol 650mg PO administered. call light within reach. Addendum: 10/03/16 at 1926 by FLAKO HU RN wrong time
--- NOTE | 2016-10-03 19:32 | NUR ---
End Of Shift Report given. Patient is a 36 year old female, admitted for ETOH dependence. Pt is full code regular diet continues on fall and seizure precautions. Patient is on 1:1 for unsteady gait . Pt is on contact precautions and on isolation she is currently on antibiotic vancomycin for c-diff. Pt was Encourage fluids to facilitate detox process. Upon assessment patient presented with mild anxiety, and barely sweating with last CIWA score of: 4 @1600. Detox medication effective at reducing withdrawal symptoms. Patient encouraged to attend group therapies/sessions to learn new coping skills to recent relapse, patient denies SI/HI. Pt ate all meals total fluid intake was 2355 with 6 void and 3 bowel movement, Pt received PRN Clonidine Vistaril and Ativan 1mg medication effective. Pt was visited by physical therapy and occupational therapy with reports some progress. Safety measures in place. Call light kept within reach. Patient endorsed to night warehouse manager nurse, all pertinent information discussed.
[2016-10-03 20:00] VITALS: BP 104/64
--- NOTE | 2016-10-03 20:00 | NUR ---
Start of Shift Note: Report received from day shift nurse. Pt is a 36 Y/O female re-admitted on 10/02/2016 for medically-supervised withdrawal from ETOH. Pt reports drinking two bottles of wine daily, was admitted to [facility] on 09/25/16 and was then transferred to 2nd floor for GI bleed; pt received 2mg Ativan q8h PRN. Pt is to discharge tomorrow. Pt received with last CIWA=4, and PRN's clonidine, Vistaril, and Ativan were given during day shift. Full code status, on regular diet, and reports NKDA/NKFA. Pt is on 1:1 for unsteady gait. PMHx; anemia, peripheral neuropathy, C-Diff, anxiety, depression, cirrhosis. Pt received in room, and reports severe anxiety. Bed is in low position and locked, side rails up x2, call light within reach. Will continue to monitor.
[2016-10-03] MEDS: ASCORBIC ACID 250 MG TABLET PO SCH (21:03)
[2016-10-03] MEDS: FERROUS SULFATE 325 MG TABEC PO SCH (21:04)
[2016-10-03] MEDS: TRAZODONE 50 MG TABLET PO SCH (21:55)
--- NOTE | 2016-10-03 21:55 | NUR ---
PRN Clonidine and PRN Vistaril: Patient complains of severe anxiety. Administered PRN Clonidine and PRN Vistaril as ordered. Will continue to monitor.
--- NOTE | 2016-10-03 22:55 | NUR ---
PRN Reassessment: Patient reports that PRN Clonidine and PRN Vistaril were effective at reducing anxiety. Will continue to monitor.
[2016-10-04] VITALS: BP 84/53
--- NOTE | 2016-10-04 | NUR ---
CIWA Deferred: CIWA deferred for sleep. V/S stable. All safety precautions are in place. Will continue to monitor. Addendum: 10/04/16 at 0157 by RO BRASWELL RN Amended: Links added.
[2016-10-04] MEDS: VANCOMYCIN FOR PO/GT/NG USE PO SCH ×5 (00:45→23:50)
[2016-10-04 00:47] LABS: *AMPHETAMINE, URINE NEGATIVE (NEGATIVE); *BARBITURATE, URINE NEGATIVE (NEGATIVE); *CANNABINOID, URINE NEGATIVE (NEGATIVE); *COCCAINE, URINE NEGATIVE (NEGATIVE); *OPIATE, URINE NEGATIVE (NEGATIVE); *PHENCYCLIDINE SCREEN,URINE NEGATIVE (NEGATIVE)
[2016-10-04 04:00] VITALS: BP 103/67
--- NOTE | 2016-10-04 04:30 | NUR ---
SpO2: Patient SpO2 on RA at 93%. Patient denies dyspnea. Patient placed on 2L O2 via NC and SpO2 increased to 96%.
[2016-10-04] MEDS: PENTOXIFYLLINE 400 MG TABLET.SA PO SCH ×3 (06:31→21:31)
[2016-10-04] MEDS: ACIDOPHILUS/BULGARICUS CHEW TAB PO SCH ×3 (06:31→21:31)
--- NOTE | 2016-10-04 07:12 | NUR ---
End of Shift Note: Pt is a 36 Y/O female re-admitted to [facility] on 10/02/2016 for medically-supervised withdrawal from ETOH. PMHx; anemia, peripheral neuropathy, C-Diff, anxiety, depression, cirrhosis. Full code, regular diet, NKDA/NKFA, on 1:1 for unsteady gait, contact/c-diff precautions. Pt is to discharge today. Scheduled medication regime effectively managed s/s of withdrawal this shift, in addition to PRN clonidine and PRN Vistaril for anxiety. Last CIWA=1 at 04:00. V/S stable throughout shift with tachycardia. Total fluid intake this shift: 520 ml; output: urine x 4 and BM x 1 loose, no blood. Pt is currently in bed and slept 7 hours this shift. All needs have been attended and met. Pt endorsed to day shift nurse.
--- NOTE | 2016-10-04 07:30 | NUR ---
Start of shift note; Patient is AOX4. Patient is a 36 year old female re-admitted to [facility] on 10/02/2016 for medically-supervised withdrawal from ETOH. Past medical history reported; anemia, peripheral neuropathy, C-Diff, anxiety, depression, cirrhosis. Full code, regular diet, NKDA/NKFA. Patient is currently on isolation precaution. Patient is on fall and seizure precaution. Bed in lowest position, call light within reach. Patient's last CIWA is 1 at 0400, patient slept for 7 hours. Pending discharge location noted. Will continue to monitor patient. Addendum: 10/04/16 at 0933 by SOLOMON AJ LVN Patient appears jaundiced, on 2LPM via nasal canula to maintain SPO2> 95%.
[2016-10-04 08:00] VITALS: BP 93/52
[2016-10-04 08:00] LABS: CARBON DIOXIDE 21 mmol/L (21-32); CHLORIDE 104 mmol/L (98-107); CREATININE 0.4 mg/dL (0.6-1.3); GLUCOSE 86 mg/dL (74-106); UREA NITROGEN, BLOOD 3 mg/dL (7-18)
[2016-10-04 08:01] LABS: ALANINE AMINOTRANSFERASE 16 U/L (14-59); ALKALINE PHOSPHATASE 178 U/L (50-136); ASPARTATE AMINOTRANSFERASE 109 U/L (15-37); BILIRUBIN,DIRECT 11.6 mg/dL (0.0-0.2); BILIRUBIN,TOTAL 15.4 mg/dL (0.2-1.0); MAGNESIUM 1.7 mg/dL (1.8-2.4); PHOSPHOROUS 2.9 mg/dL (2.5-4.9); TOTAL PROTEIN, SERUM 5.8 g/dL (6.4-8.2)
[2016-10-04] MEDS: MULTIVITAMINS,THERAPEUTIC TABLET PO SCH (09:00)
[2016-10-04] MEDS: GABAPENTIN 300 MG CAPSULE PO SCH ×3 (09:00→20:16)
[2016-10-04] MEDS: CIPROFLOXACIN-HC OTIC DROP 10 ML BOTTLE RIGHT EAR SCH ×2 (09:00→17:18)
[2016-10-04] MEDS: FOLIC ACID 1 MG TABLET PO SCH (09:00)
[2016-10-04] MEDS: THIAMINE HCL 100 MG TABLET PO SCH (09:00)
[2016-10-04] MEDS: ASCORBIC ACID 250 MG TABLET PO SCH ×2 (09:00→20:17)
[2016-10-04] MEDS: FERROUS SULFATE 325 MG TABEC PO SCH ×2 (09:00→20:17)
[2016-10-04] MEDS: ESCITALOPRAM OXALATE 10 MG TABLET PO SCH (09:00)
[2016-10-04] MEDS ORDERED: MAGNESIUM OXIDE 400 MG TABLET PO ONE (09:30)
[2016-10-04 09:49] LABS: HEMOGLOBIN 9.4 G/DL (12.0-16.0)
[2016-10-04 09:53] LABS: HEMATOCRIT 29.2 % (37-47); MEAN CORPUSCULAR HEMOGLOBIN 27.3 UUG (27.0-31.0); MEAN CORPUSCULAR HGB CONC 32 g/dL (32.0-37.0); MEAN CORPUSCULAR VOLUME 84.9 FL (81.0-99.0); RED BLOOD CELL COUNT(AUTO) 3.44 MIL/UL (4.2-5.4)
[2016-10-04 09:55] LABS: PLATELET COUNT (AUTO) 106 K/UL (150-450); WHITE BLOOD COUNT (AUTO) 5.9 K/UL (4.0-11.2)
[2016-10-04 10:05] LABS: BAND % (MANUAL) 9 % (0-10); LYMPHOCYTES % (MANUAL) 9 % (20-40); MONOCYTES % (MANUAL) 8 % (2-10); NEUTROPHILS % (MANUAL) 74 % (42-75)
--- NOTE | 2016-10-04 10:09 | NUR ---
Magnesium Oxide; Patient's magnesium is low, MD ordered Magnesium oxide 800 mg PO one time. Will continue to monitor patient.
[2016-10-04 12:00] VITALS: BP 107/67
[2016-10-04] MEDS: ACETAMINOPHEN 325 MG TABLET PO PRN (14:02)
--- NOTE | 2016-10-04 14:02 | NUR ---
PRN medication; Patient is complaining of right ear pain rated 4/10, PRN Tylenol 650mg PO given for pain. Will continue to monitor patient.
--- NOTE | 2016-10-04 15:02 | NUR ---
Re-assessment; Patient denies pain at this time. PRN medication is effective.
[2016-10-04 16:00] VITALS: BP 98/58
--- NOTE | 2016-10-04 16:38 | NUR ---
15:20 Left a message to [facility], Juventino Franco [ [phone]], to get help in placing the patient to a SNF 15:25 Spoke to Claudy from [facility] in regards to finding SNF benefits and he provided Customer Services phone - 15:32 Spoke to Sonali from [facility] and she confirmed that the patient does have 100 days SNF coverage with a total of $9,500.00 deductible. She is however unable to provide the authorization and stated that Auth is given by the / - 15:40 Spoke to Jameson from [facility] [ ; ] about the situation and he requested for the patient's information to be faxed. 15:45 Contacted Arnoldo from [facility] [ ; ] about the situation and he requested for the patient's information to be faxed to their sister facility - [facility] [ ; [phone]] 15:52 Updated Nai [ ], ELFEGO from [facility], on the status of placement 16:00 Spoke with Dasha Nuñez CM from [facility] and she was provided with the clinical reviews and plan of care. She stated that the facilities need to call her for authorization. 16:02 Jameson stated they their DON declined the admission 16:13 Faxed the patient's information to [facility] [ ; ] 16:20 Spoke to MICKEY from [facility] [ ; ] and faxed him the patient's information. He will present the case to their DON 16:25 Sara from [facility] [ ; ] requested for the patient's information 16:45 Angel Layadena Carrera will try to get authorization.
--- NOTE | 2016-10-04 18:13 | NUR ---
End of shift note; Patient is AOX4. Patient is a 36 year old female re-admitted to [facility] on 10/02/2016 for medically-supervised withdrawal from ETOH. Past medical history reported; anemia, peripheral neuropathy, C-Diff, anxiety, depression, cirrhosis. Full code, regular diet, NKDA/NKFA. Patient is currently on isolation precaution. Patient is on fall and seizure precaution. Bed in lowest position, call light within reach. Patient's last CIWA is 2 at 1600. Patient remained compliant with treatment plan. Safety measures secured. Met all needs.
[2016-10-04] MEDS: HYDROXYZINE PAMOATE 25 MG CAPSULE PO PRN (19:55)
[2016-10-04] MEDS: CLONIDINE HCL 0.1 MG TABLET PO PRN (19:55)
--- NOTE | 2016-10-04 19:55 | NUR ---
PRN Vistaril and PRN Clonidine: Patient complains of severe anxiety. Administered PRN Clonidine and PRN Vistaril as ordered. Will continue to monitor.
[2016-10-04 20:00] VITALS: BP 102/67
[2016-10-04] MEDS ORDERED: IBUPROFEN 400 MG TABLET PO PRN (20:00)
--- NOTE | 2016-10-04 20:00 | NUR ---
Start of Shift Note: Report received from day shift nurse. Pt is a 36 Y/O female re-admitted on 10/02/2016 for medically-supervised withdrawal from ETOH. Pt reports drinking two bottles of wine daily, and received 2mg Ativan q8h PRN while at [facility]. Pt received with last CIWA=2, and PRN Tylenol was given during day shift. Full code, NKDA/NKFA, regular diet, contact isolation/c-diff. PMHx; anemia, peripheral neuropathy, C-Diff, cirrhosis, anxiety, depression. Pt received in room, and reports severe anxiety and right ear pain. Bed is in low position and locked, side rails up x2, call light within reach. Will continue to monitor.
[2016-10-04] MEDS: IBUPROFEN 400 MG TABLET PO PRN (20:16)
--- NOTE | 2016-10-04 20:16 | NUR ---
PRN Motrin: Patient complains of right ear pain, rates pain 6/10. Administered PRN Motrin as ordered. Will continue to monitor.
--- NOTE | 2016-10-04 21:00 | NUR ---
Trazodone Late: Patient states that she does not want to take scheduled Trazodone at 21:00, reports that she wakes up in the middle of the night is she take the medication that early. Medication administered at 23:50. Will endorse patient's request to day shift nurse for adjustment by psych.
--- NOTE | 2016-10-04 21:15 | NUR ---
PRN Reassessment: Patient reports that anxiety has decreased to a manageable level. Patient denies right ear pain at this time. PRN's Clonidine, Vistaril, and Motrin effective. Will continue to monitor.
[2016-10-04] MEDS: TRAZODONE 50 MG TABLET PO SCH ×2 (21:31→23:50)
[2016-10-05] VITALS: BP 95/57
[2016-10-05 04:00] VITALS: BP 92/55
--- NOTE | 2016-10-05 04:00 | NUR ---
CIWA Deferred: CIWA deferred for sleep. V/S stable. All safety precautions are in place. Will continue to monitor. Addendum: 10/05/16 at 0554 by RO BRASWELL RN Amended: Links added.
[2016-10-05] MEDS: PENTOXIFYLLINE 400 MG TABLET.SA PO SCH ×3 (06:43→23:08)
[2016-10-05] MEDS: ACIDOPHILUS/BULGARICUS CHEW TAB PO SCH ×3 (06:43→23:08)
[2016-10-05] MEDS: VANCOMYCIN FOR PO/GT/NG USE PO SCH ×4 (06:43→23:08)
--- NOTE | 2016-10-05 06:45 | NUR ---
Loose Stool/Scant Blood: Patient reported to nurse loose stool x1 with scant amount of red blood. MD made aware.
--- NOTE | 2016-10-05 07:12 | NUR ---
End of Shift Note: Pt is a 36yo female [facility] for medically-supervised withdrawal from ETOH. PMHx: anemia, peripheral neuropathy, C-Diff, anxiety, depression, cirrhosis. Pt is on a regular diet. Pt is a full code. Pt reports NKDA/NKFA. Ambulatory with unsteady/weak gait. Contact isolation for C-Diff. Scheduled medication regime effectively managed s/s of withdrawal this shift, in addition to PRN Catapres and PRN Vistaril for anxiety. Last CIWA=2 at 00:00. V/S stable throughout shift, afebrile. PRN Motrin given for right ear pain. Cipro ear drops ordered for ear infection. Total fluid intake this shift: 1500 ml; output: urine x 5 and BM x 1 loose, scant blood. Pt is currently in bed and slept 6 hours this shift. All needs have been attended and met. Pt endorsed to day shift nurse.
--- NOTE | 2016-10-05 07:36 | NUR ---
START OF SHIFT NOTE Received patient laying in bed AOx4. Patient presents jaundiced and weak. She states she feels better and was able to sleep last night. Patient is on contact precautions for C DIFF. Patient on PRN Ativan. She slept 6 hours. PRN Motrin, Clonidine, and Vistaril given per night nurse with effectiveness. Last CIWA 2 per overnight caregiver. Encouraged patient to increase fluids to increase hydration. Will provide safe and supportive environment. Will monitor
[2016-10-05 08:00] VITALS: BP 93/65
[2016-10-05 08:26] LABS: BILIRUBIN,DIRECT 12.8 mg/dL (0.0-0.2); BILIRUBIN,TOTAL 15.1 mg/dL (0.2-1.0)
[2016-10-05 08:29] LABS: ALANINE AMINOTRANSFERASE 20 U/L (14-59); ALKALINE PHOSPHATASE 184 U/L (50-136); ASPARTATE AMINOTRANSFERASE 107 U/L (15-37); BILIRUBIN,DIRECT 12.5 mg/dL (0.0-0.2); BILIRUBIN,TOTAL 15.2 mg/dL (0.2-1.0); CARBON DIOXIDE 25 mmol/L (21-32); CHLORIDE 106 mmol/L (98-107); CREATININE 0.5 mg/dL (0.6-1.3); GLUCOSE 81 mg/dL (74-106); MAGNESIUM 1.7 mg/dL (1.8-2.4); PHOSPHOROUS 3.2 mg/dL (2.5-4.9); POTASSIUM 3.5 mmol/L (3.5-5.1); TOTAL PROTEIN, SERUM 5.9 g/dL (6.4-8.2); UREA NITROGEN, BLOOD 4 mg/dL (7-18)
[2016-10-05] MEDS: ESCITALOPRAM OXALATE 10 MG TABLET PO SCH (08:33)
[2016-10-05] MEDS: GABAPENTIN 300 MG CAPSULE PO SCH ×3 (08:33→20:25)
[2016-10-05] MEDS: FOLIC ACID 1 MG TABLET PO SCH (08:33)
[2016-10-05] MEDS: THIAMINE HCL 100 MG TABLET PO SCH (08:33)
[2016-10-05] MEDS: MULTIVITAMINS,THERAPEUTIC TABLET PO SCH (08:33)
[2016-10-05] MEDS: ASCORBIC ACID 250 MG TABLET PO SCH ×2 (08:33→20:26)
[2016-10-05] MEDS: FERROUS SULFATE 325 MG TABEC PO SCH ×2 (08:33→20:25)
[2016-10-05 08:49] LABS: HEMATOCRIT 29.8 % (37-47); HEMOGLOBIN 9.6 G/DL (12.0-16.0); MEAN CORPUSCULAR HEMOGLOBIN 27.6 UUG (27.0-31.0); MEAN CORPUSCULAR HGB CONC 32 g/dL (32.0-37.0); MEAN CORPUSCULAR VOLUME 85.1 FL (81.0-99.0); WHITE BLOOD COUNT (AUTO) 6.1 K/UL (4.0-11.2)
[2016-10-05 08:52] LABS: PLATELET COUNT (AUTO) 111 K/UL (150-450)
[2016-10-05 11:46] LABS: BAND % (MANUAL) 9 % (0-10); LYMPHOCYTES % (MANUAL) 11 % (20-40); MONOCYTES % (MANUAL) 9 % (2-10); NEUTROPHILS % (MANUAL) 71 % (42-75)
[2016-10-05 12:00] VITALS: BP 98/60
[2016-10-05 16:00] VITALS: BP 91/58
[2016-10-05] MEDS: HYDROXYZINE PAMOATE 25 MG CAPSULE PO PRN ×2 (17:29→23:53)
--- NOTE | 2016-10-05 17:30 | NUR ---
PRN MEDICATION PRN Vistaril given for c/o anxiety. Patient presents mildly anxious. Will reassess
--- NOTE | 2016-10-05 18:05 | NUR ---
PRN REASSESSMENT Patient reports feeling less anxious. patient resting calmly in bed. Will reassess
--- NOTE | 2016-10-05 18:28 | NUR ---
END OF SHIFT NOTE Patient continues on PRN Ativan only. PRN Vistaril given for c/o anxiety during shift with effectiveness. Patient continues on contact precautions for C.DIFF. Last CIWA 2. Vital signs stable during shift with oxygen saturation WNL and afebrile. Patient presents jaundiced, but states she is feeling better. All needs have been met. Safety measures in place. Bed locked and in lowest position, call collins within reach, commode at bedside. Will pass shift report to oncoming nurse.
--- NOTE | 2016-10-05 19:50 | NUR ---
START OF SHIFT Received report from day shift nurse. Pt is in her room watching TV. She is a 36 yo female admitted to [facility] on 10/02 for ETOH dependence. She is A&O x4 and ambulatory. She has mild generalized weakness. NKA, full code status, and on a regular diet. She has PMH of cirrhosis, anemia, peripheral neuropathy, c-diff, anxiety, and depression. Pt is on isolation precautions for c-diff. On admission she reported drinking 2 bottles of wine per day. Prior to admission she was administered Ativan IV 2mg 2x/day starting on 09/25/16. Her skin is jaundiced and abdomen is distended. She reports mild stomach discomfort that started after dinner, right ear pain, and anxiety. She denies N/V or recent episodes of diarrhea. Encouraged relaxation. She is compliant with treatment. Medications due tonight. Fall, seizure, and isolation precautions in place. Bed is down with call light in reach.
[2016-10-05 20:00] VITALS: BP 96/65
[2016-10-05] MEDS: CLONIDINE HCL 0.1 MG TABLET PO PRN (20:26)
[2016-10-05] MEDS: IBUPROFEN 400 MG TABLET PO PRN (20:27)
--- NOTE | 2016-10-05 20:28 | NUR ---
PRN Motrin and Clonidine administration Pt c/o right ear pain and feeling anxious and unable to relax. PRN Motrin and Clonidine administered.
[2016-10-05] MEDS ORDERED: MAGNESIUM OXIDE 400 MG TABLET PO ONE (21:00)
--- NOTE | 2016-10-05 21:28 | NUR ---
PRN Motrin and Clonidine reassessment PRN Motrin and Clonidine effective. Pt reports relief of right ear pain. She verbalizes that she is feeling more relaxed.
[2016-10-05] MEDS: TRAZODONE 50 MG TABLET PO PRN (23:08)
--- NOTE | 2016-10-05 23:09 | NUR ---
PRN Trazodone Pt c/o inability to sleep. PRN Trazodone administered.
[2016-10-05] MEDS: ONDANSETRON ODT 4 MG TAB.RAPDIS SL PRN (23:52)
--- NOTE | 2016-10-05 23:54 | NUR ---
PRN Vistaril and Zofran Pt c/o one episode of vomiting. She verbalized feeling anxious and unable to relax to fall asleep. PRN Vistaril and Zofran administered.
[2016-10-06] VITALS: BP 92/60
--- NOTE | 2016-10-06 00:54 | NUR ---
PRN Zofran and Vistaril reassessment PRN Zofran and Vistaril effective. Pt is lying in bed resting with eyes closed. No further episodes of vomiting reported. Safety measures in place.
[2016-10-06 04:00] VITALS: BP 95/65
[2016-10-06] MEDS: PENTOXIFYLLINE 400 MG TABLET.SA PO SCH ×3 (06:32→21:43)
[2016-10-06] MEDS: ACIDOPHILUS/BULGARICUS CHEW TAB PO SCH ×3 (06:32→21:42)
[2016-10-06] MEDS: VANCOMYCIN FOR PO/GT/NG USE PO SCH ×4 (06:33→23:16)
--- NOTE | 2016-10-06 07:02 | NUR ---
END OF SHIFT Report provided to day shift nurse. Pt is lying in bed resting. She is a 36 yo female admitted to [facility] on 10/02 for ETOH dependence. She is A&O and ambulatory. Pt has mild generalized weakness. She is on isolation precautions for c-diff. NKA, full code status, and on a regular diet. She has PMH of cirrhosis, anemia, peripheral neuropathy, c-diff, anxiety, and depression. Pt is on isolation precautions for c-diff. Vancomycin PO ordered. On admission she reported drinking 2 bottles of wine per day. Prior to admission she was administered Ativan IV 2mg 2x/day starting on 09/25/16. Pt had one episode of vomiting and no episodes of diarrhea during the shift. PRN Motrin, Clonidine, Zofran, Vistaril, and Trazodone administered. Last CIWA was 3. She drank 1153mL and slept 8 hours. Fall, seizure, and isolation precautions in place. Bed is down with call light in reach.
--- NOTE | 2016-10-06 07:29 | NUR ---
START OF SHIFT NOTE: Received report from nutrition services manager nurse. Pt is in her room watching TV. Pt is a 36 yo female admitted to [facility] on 10/02/16 for ETOH dependence. Pt is alert and oriented X4. Color jaundiced. Respirations even and unlabored. Pt is resting in bed at this time. Safety precautions observed. Call light within reach. Will continue to monitor. Addendum: 10/06/16 at 0840 by ENA WILLIS RN Pt on isolation for C-DIFF
[2016-10-06 08:05] VITALS: BP 96/65
[2016-10-06] MEDS: GABAPENTIN 300 MG CAPSULE PO SCH ×3 (08:31→20:40)
[2016-10-06] MEDS: THIAMINE HCL 100 MG TABLET PO SCH (08:31)
[2016-10-06] MEDS: MULTIVITAMINS,THERAPEUTIC TABLET PO SCH (08:31)
[2016-10-06] MEDS: FOLIC ACID 1 MG TABLET PO SCH (08:32)
[2016-10-06] MEDS: ESCITALOPRAM OXALATE 10 MG TABLET PO SCH (08:32)
[2016-10-06] MEDS: ASCORBIC ACID 250 MG TABLET PO SCH ×2 (08:32→20:40)
--- NOTE | 2016-10-06 08:39 | NUR ---
VSS CIWA 4 c/o anxiety and has mild upper extremity tremors.
[2016-10-06] MEDS: FERROUS SULFATE 325 MG TABEC PO SCH ×2 (09:33→20:40)
[2016-10-06] MEDS: HYDROXYZINE PAMOATE 25 MG CAPSULE PO PRN (09:37)
[2016-10-06] MEDS: CLONIDINE HCL 0.1 MG TABLET PO PRN (09:37)
--- NOTE | 2016-10-06 09:44 | NUR ---
Clonidine 0.1mg po prn and Vistaril 25mg po prn administered for anxiety
--- NOTE | 2016-10-06 10:45 | NUR ---
Pt states feels much improved after Clonidine and Vistaril prn Anxiety has lessened.
[2016-10-06 13:01] VITALS: BP 98/63
[2016-10-06 13:29] LABS: *AMPHETAMINE, URINE NEGATIVE (NEGATIVE); *BARBITURATE, URINE NEGATIVE (NEGATIVE); *CANNABINOID, URINE NEGATIVE (NEGATIVE); *COCCAINE, URINE NEGATIVE (NEGATIVE); *OPIATE, URINE NEGATIVE (NEGATIVE); *PHENCYCLIDINE SCREEN,URINE NEGATIVE (NEGATIVE)
[2016-10-06] MEDS ORDERED: LORAZEPAM 1 MG TABLET PO ONE (14:00)
--- NOTE | 2016-10-06 14:10 | NUR ---
Pt c/o increased anxiety. CIWA 9 Ativan 2mg X 1 given
--- NOTE | 2016-10-06 14:50 | NUR ---
Pt states anxiety has decreased after Ativan X1
[2016-10-06 17:25] VITALS: BP 90/60
--- NOTE | 2016-10-06 18:39 | NUR ---
END OF SHIFT NOTE: Report given to fast food shift lead nurse. Pt is a 36 yo female admitted to [facility] on 10/02/16 for ETOH dependence. Pt is alert and oriented X4. Color jaundiced. Respirations even and unlabored. Pt on isolation for C-DIFF. Clonidine 0.1mg po prn and Vistaril 25mg po prn administered for anxiety @ 0945. Ativan 2mg X 1 given @ 1410. Vital signs have remained stable throughout shift. Last CIWA 9 @ 1500. Pt is resting in bed at this time. Safety precautions observed. Call light within reach.
[2016-10-06 20:00] VITALS: BP 101/68
--- NOTE | 2016-10-06 20:00 | NUR ---
Start of Shift Pt is a 36 year old female admitted for ETOH Dependence, completed Ativan taper. During time of admission, pt reported drinking 2 bottles of wine per day. PMH: cirrhosis, anemia, peripheral neuropathy, c-diff, anxiety, and depression. NKA, fall/seizure precautions - no history of seizures, isolations precautions in place for C-diff and full code. Upon assessment, pt reports feeling anxious, reports stomach cramping, fine tremors noted, skin color jaundiced, respirations even/unlabored, denies SOB/chest pain, denies recent episodes of diarrhea. Safety measures in place, call light within reach, side rails up x2, bed locked and in low position. Will continue to monitor.
[2016-10-06] MEDS: ONDANSETRON ODT 4 MG TAB.RAPDIS SL PRN (21:54)
--- NOTE | 2016-10-06 21:56 | NUR ---
PRN Administration Pt reported feeling nauseated, no emesis presented. Pt requested relief. Zofran ODT 4mg administered. Safety measures in place. Will continue to monitor.
--- NOTE | 2016-10-06 22:56 | NUR ---
PRN Reassessment Upon reassessment, pt stated, "I don't feel like vomiting anymore". Medication effective. Needs met, safety measures in place. Will continue to monitor.
[2016-10-06] MEDS: TRAZODONE 50 MG TABLET PO PRN (23:16)
--- NOTE | 2016-10-06 23:16 | NUR ---
PRN Administration Pt reported difficulty falling asleep, requested aid, non-pharmacological methods ineffective. Trazodone 50mg PRN administered. Safety measures in place. Will continue to monitor.
[2016-10-07] VITALS: BP 95/78
--- NOTE | 2016-10-07 00:16 | NUR ---
PRN Reassessment Upon reassessment, pt is sleeping, respirations even/unlabored, no s/s of acute distress noted. Safety measures in place. will continue to monitor
[2016-10-07 04:00] VITALS: BP 98/56
--- NOTE | 2016-10-07 04:00 | NUR ---
Vital Signs BP 98/56, pulse 92, respiration 18, SpO2 96%, temp 98.6, no pain 0/10 CIWA deferred d/t pt sleeping - to assess while pt is awake as ordered. Safety measures in place. Will continue to monitor.
[2016-10-07] MEDS: VANCOMYCIN FOR PO/GT/NG USE PO SCH ×4 (06:11→23:04)
[2016-10-07] MEDS: ACIDOPHILUS/BULGARICUS CHEW TAB PO SCH ×3 (06:11→21:19)
[2016-10-07] MEDS: PENTOXIFYLLINE 400 MG TABLET.SA PO SCH ×3 (06:12→21:19)
--- NOTE | 2016-10-07 07:00 | NUR ---
End of Shift Pt is a 36 year old female admitted for ETOH Dependence, completed Ativan taper. During time of admission, pt reported drinking 2 bottles of wine per day. PMH: cirrhosis, anemia, peripheral neuropathy, c-diff, anxiety, and depression. NKA, fall/seizure precautions - no history of seizures, isolations precautions in place for C-diff and full code. During shift, pt reported feeling anxious, reports stomach cramping, fine tremors noted, skin color jaundiced - scheduled medications administered, CIWA 7 . Zofran ODT 4 mg administered for nausea, effective as verbalized by pt. Trazodone 50mg PRN administered for sleep, effective. Pt slept for 6 hours, intake of 1333 mL PO and voids x4. Pt is scheduled for discharge today. Safety measures in place, call light within reach, side rails up x2, bed locked and in low position. Endorsed to day shift nurse.
--- NOTE | 2016-10-07 07:38 | NUR ---
START OF SHIFT NOTE: Received report from night club manager nurse. Pt is a 36 yo female admitted to [facility] on 10/02/16 for ETOH dependence. To be discharged today. Pt is alert and oriented X4. Color jaundiced. Respirations even and unlabored. Pt on isolation for C-DIFF. Pt is resting in bed at this time. Safety precautions observed. Call light within reach. Will continue to monitor.
[2016-10-07 07:54] LABS: ALANINE AMINOTRANSFERASE 19 U/L (14-59); ALKALINE PHOSPHATASE 192 U/L (50-136); ASPARTATE AMINOTRANSFERASE 146 U/L (15-37); CARBON DIOXIDE 25 mmol/L (21-32); CHLORIDE 104 mmol/L (98-107); CREATININE 0.5 mg/dL (0.6-1.3); GLUCOSE 93 mg/dL (74-106); MAGNESIUM 1.8 mg/dL (1.8-2.4); PHOSPHOROUS 3.6 mg/dL (2.5-4.9); POTASSIUM 3.8 mmol/L (3.5-5.1); TOTAL PROTEIN, SERUM 5.8 g/dL (6.4-8.2); UREA NITROGEN, BLOOD 4 mg/dL (7-18)
[2016-10-07 08:00] VITALS: BP 96/60
[2016-10-07] MEDS: MULTIVITAMINS,THERAPEUTIC TABLET PO SCH (08:55)
[2016-10-07] MEDS: FOLIC ACID 1 MG TABLET PO SCH (08:55)
[2016-10-07] MEDS: ESCITALOPRAM OXALATE 10 MG TABLET PO SCH (08:55)
[2016-10-07] MEDS: FERROUS SULFATE 325 MG TABEC PO SCH ×2 (08:55→21:00)
[2016-10-07] MEDS: GABAPENTIN 300 MG CAPSULE PO SCH ×3 (08:55→21:19)
[2016-10-07] MEDS: ASCORBIC ACID 250 MG TABLET PO SCH ×2 (08:55→21:19)
[2016-10-07] MEDS: THIAMINE HCL 100 MG TABLET PO SCH (09:00)
--- NOTE | 2016-10-07 09:00 | NUR ---
VSS CIWA 7 Pt c/o tremors and anxiety
[2016-10-07 09:10] LABS: BASOPHILS % (AUTO) 0.5 % (0.0-2.0); EOSINOPHILS % (AUTO) 0.1 % (0.0-7.0); HEMATOCRIT 28.5 % (37-47); HEMOGLOBIN 9.7 G/DL (12.0-16.0); LYMPHOCYTES # (AUTO) 5.5 K/UL (0.8-4.8); LYMPHOCYTES % (AUTO) 70.4 % (20.5-51.5); MEAN CORPUSCULAR HEMOGLOBIN 29.3 UUG (27.0-31.0); MEAN CORPUSCULAR HGB CONC 34 g/dL (32.0-37.0); MEAN CORPUSCULAR VOLUME 86.1 FL (81.0-99.0); MONOCYTES # (AUTO) 0.2 K/UL (0.1-1.30); MONOCYTES % (AUTO) 2.3 % (0.0-11.0); NEUTROPHILS # (AUTO) 2.1 K/UL (1.8-8.9); NEUTROPHILS % (AUTO) 26.7 % (38.5-71.5); PLATELET COUNT (AUTO) 151 K/UL (150-450); RED BLOOD CELL COUNT(AUTO) 3.31 MIL/UL (4.2-5.4); WHITE BLOOD COUNT (AUTO) 7.8 K/UL (4.0-11.2)
[2016-10-07] MEDS: ONDANSETRON ODT 4 MG TAB.RAPDIS SL PRN (10:12)
--- NOTE | 2016-10-07 10:15 | NUR ---
Pt c/o nausea. Zofran 4mg sl prn administered.
[2016-10-07 10:43] LABS: BAND % (MANUAL) 13 % (0-10); NEUTROPHILS % (MANUAL) 60 % (42-75)
[2016-10-07 10:44] LABS: LYMPHOCYTES % (MANUAL) 23 % (20-40); MONOCYTES % (MANUAL) 4 % (2-10)
--- NOTE | 2016-10-07 11:15 | NUR ---
Pt states Zofran "really didn't help nausea."
--- NOTE | 2016-10-07 12:30 | NUR ---
Pt feels improved. Eating lunch.
[2016-10-07 12:57] VITALS: BP 108/62
--- NOTE | 2016-10-07 13:27 | NUR ---
Pt up to shower with assistance.
--- NOTE | 2016-10-07 16:00 | NUR ---
VSS CIWA 6 c/o anxiety and tremors
[2016-10-07 17:59] VITALS: BP 102/65
[2016-10-07] MEDS: HYDROXYZINE PAMOATE 25 MG CAPSULE PO PRN (18:20)
--- NOTE | 2016-10-07 18:23 | NUR ---
Pt c/o anxiety. Vistaril 25mg po prn given
--- NOTE | 2016-10-07 18:45 | NUR ---
END OF SHIFT NOTE: Report given to casino shift manager nurse. Pt is a 36 yo female admitted to [facility] on 10/02/16 for ETOH dependence. Pt is alert and oriented X4. Color jaundiced. Respirations even and unlabored. Pt on isolation for C-DIFF. Zofran 4mg sl prn administered prn @ 1015. Vistaril 25mg po prn given @ 1820. Vital signs have remained stable throughout shift. Last CIWA 6 @ 1700. Pt is resting in bed at this time. Safety precautions observed. Call light within reach.
--- NOTE | 2016-10-07 19:25 | NUR ---
Start of Shift Patient Received. Patient is in bed, awake, alert and verbally responsive. Breathing even and non labored. Patient is a 36 year old female, admitted on 10/02/16 for ETOH Dependence, under the care of Dr. Bejarano. Patient verbalizes no known allergies, wishes to be full code, following a regular diet, placed on fall and seizure precautions. Patient is currently on Isolation for C-diff and is currently receiving Vancomycin Q6H. Past Medical history noted as Anemia, Peripheral Neuropathy, HX of C-Diff, and Cirrhosis. Patient is also receiving Cipro for Right Ear infection. Patient was given PRN Zofran and Vistaril with medications noted to be effective. All needs attended to promptly. Will continue plan of care as ordered.
[2016-10-07 20:16] VITALS: BP 105/64
[2016-10-07] MEDS: IBUPROFEN 400 MG TABLET PO PRN (20:19)
--- NOTE | 2016-10-07 20:20 | NUR ---
PRN Medication Administration patient verbalizing increased pain of 5/10 to the abdominal region. PRN Motrin administered as per orders. Will continue to monitor.
--- NOTE | 2016-10-07 21:19 | NUR ---
PRN Medication Reassessment Patient was given PRN Motrin for abdominal pain. During routine medications patient is able to verbalize pain as subsided. PRN Motrin noted effective. Will continue to monitor.
[2016-10-07] MEDS: TRAZODONE 50 MG TABLET PO PRN (23:05)
--- NOTE | 2016-10-07 23:05 | NUR ---
PRN Medication Administration Patient is verbalizing inability of falling asleep. All non pharmacological interventions noted not effective. PRN Trazodone administered. Will continue to monitor.
[2016-10-08] VITALS (7 sets, daily range): BP systolic 95–125; BP diastolic 53–60
--- NOTE | 2016-10-08 00:15 | NUR ---
PRN Medication Reassessment Patient is noted in bed sleeping. Breathing even and non labored. No signs of pain or discomfort noted. PRN Trazodone noted to be effective. Patient respiration noted to be 14. NO facial grimacing noted to be effective. Will continue to monitor.
[2016-10-08] MEDS: PENTOXIFYLLINE 400 MG TABLET.SA PO SCH ×3 (06:00→21:22)
[2016-10-08] MEDS: ACIDOPHILUS/BULGARICUS CHEW TAB PO SCH ×3 (06:00→21:22)
[2016-10-08] MEDS: VANCOMYCIN FOR PO/GT/NG USE PO SCH ×4 (06:01→23:17)
--- NOTE | 2016-10-08 07:03 | NUR ---
End of Shift Patient is in bed sleeping. Breathing even and non labored. No signs of pain or discomfort noted. Patient is a 36 year old female, admitted on 10/02/16 for ETOH Dependence, under the care of Dr. Bejarano. Patient verbalizes no known allergies, wishes to be full code, following a regular diet, placed on fall and seizure precautions. Patient is currently on Isolation for C-diff and is currently receiving Vancomycin Q6H. Past Medical history noted as Anemia, Peripheral Neuropathy, HX of C-Diff, and Cirrhosis. Patient is also receiving Cipro for Right Ear infection. Patient was given PRN Motrin and Trazodone with medications noted to be effective. All needs attended to promptly. Will endorse to continue plan of care as ordered.
--- NOTE | 2016-10-08 07:34 | NUR ---
BEGINNING OF SHIFT Patient endorsement report received from site surveyor nurse, all pertinent information discussed. Patient is a 36 year old female admitted on 10/02/2016, Patient completed Ativan taper and is under close observation, patient pending discharge. Patient with last ciwa score of: 0, as per site surveyor. Patient received PRN: Motrin, during site surveyor, medications were effective, patient slept for 6 hours. Patient received in room, awake alert and oriented x4, educated regarding plan of care and medication regimen for the day with good verbal understanding. Safety measures in place. call light kept with in reach, will continue to monitor closely.
[2016-10-08] MEDS: THIAMINE HCL 100 MG TABLET PO SCH (08:26)
[2016-10-08] MEDS: FOLIC ACID 1 MG TABLET PO SCH (08:26)
[2016-10-08] MEDS: GABAPENTIN 300 MG CAPSULE PO SCH ×3 (08:26→21:22)
[2016-10-08] MEDS: ASCORBIC ACID 250 MG TABLET PO SCH ×2 (08:26→21:22)
[2016-10-08] MEDS: MULTIVITAMINS,THERAPEUTIC TABLET PO SCH (08:26)
[2016-10-08] MEDS: ESCITALOPRAM OXALATE 10 MG TABLET PO SCH (08:26)
[2016-10-08] MEDS: FERROUS SULFATE 325 MG TABEC PO SCH ×2 (08:30→21:00)
[2016-10-08] MEDS: IBUPROFEN 400 MG TABLET PO PRN ×3 (11:13→23:18)
[2016-10-08] MEDS: HYDROXYZINE PAMOATE 25 MG CAPSULE PO PRN ×2 (11:13→18:44)
--- NOTE | 2016-10-08 11:13 | NUR ---
PRN MOTRIN/VISTARIL Patient reports increase in anxiety, and c/o abdominal pain 10/05, provided patient with calming reassurance and non pharmacological interventions with no relief, administered Motrin as ordered and Vistaril as ordered, will monitor effectiveness of medication.
--- NOTE | 2016-10-08 12:13 | NUR ---
MOTRIN/VISTARIL REASSESSMENT Patient reports medication with relief, feels less anxious and current pain level 1/10, tolerable as per patient. safety measures in place. will continue to monitor.
[2016-10-08] MEDS ORDERED: FERR325T28 PO (16:23)
[2016-10-08] MEDS ORDERED: ASCO250T5 PO (16:23)
[2016-10-08] MEDS ORDERED: GABA-534 PO (16:23)
[2016-10-08] MEDS ORDERED: PENT400T2 PO (16:23)
--- NOTE | 2016-10-08 18:44 | NUR ---
PRN MOTRIN/VISTARIL Patient reports increase in anxiety, and c/o abdominal pain /10, provided patient with calming reassurance and non pharmacological interventions with no relief, administered Motrin as ordered and Vistaril as ordered,endorsed to shift foreman nurse, to monitor effectiveness of medication.
--- NOTE | 2016-10-08 18:48 | NUR ---
END OF SHIFT Patient alert and oriented x4, vital signs were stable during shift. patient compliant with therapeutic plan of care. 0900 Assessment patient presented with: no s/sx of withdrawal. 1300 assessment patient presented with no s/sx of withdrawal. 1700 assessment patient presented with no s/sx of withdrawal. ciwa score zero during shift. Patient received PRN: Vistaril and Motrin x2 once at 1113 and then at 1844, 1844 administration was endorse to internet marketing coordinator nurse to monitor effectiveness. 1113 dose medications were effective. Patient encouraged to attend group therapies/sessions to learn new coping skills to prevent relapse. patient denies any SI/HI. safety measures in place. call light kept with in reach. patient endorsed to internet marketing coordinator nurse, all pertinent information discussed. will continue to monitor closely.
--- NOTE | 2016-10-08 19:42 | NUR ---
START OF SHIFT Received report from day shift nurse. Pt is in her room watching TV. She is a 36 yo female admitted to [facility] on 10/02 for ETOH dependence. She is A&O x4 and ambulatory. She has mild generalized weakness and ambulates around the unit with a walker as needed. NKA, full code status, and on a regular diet. She has PMH of cirrhosis, anemia, peripheral neuropathy, c-diff, anxiety, and depression. Pt is on isolation precautions for c-diff. On admission she reported drinking 2 bottles of wine per day. Prior to admission she was administered Ativan IV 2mg 2x/day starting on 09/25/16. Her abdomen is distended and skin is jaundiced. She reports anxiety. Minimal other s/s of withdrawal. She states that she is feeling stronger is and looking forward to discharge tomorrow. Pt explains that she ambulated the unit during the day without the walker. Provided support. Fall, seizure, and isolation precautions in place. Bed is down with call light in reach.
--- NOTE | 2016-10-08 19:44 | NUR ---
PRN Motrin and Vistaril reassessment Day shift nurse endorsed PRN Motrin and Vistaril to be reassessed. PRN Motrin effective. Pt reports relief of abdominal pain. PRN Vistaril somewhat effective. Pt reports feeling slightly less anxious. Encouraged relaxation.
--- NOTE | 2016-10-08 21:27 | NUR ---
Medication refused Pt refused Feosol because "it makes me feel sick". Educated pt that medication is to be taken with food. She verbalized understanding and continued to refuse. Educated her regarding risks of refusing the medication and she continued to refuse.
[2016-10-08] MEDS: CLONIDINE HCL 0.1 MG TABLET PO PRN (23:17)
[2016-10-08] MEDS: TRAZODONE 50 MG TABLET PO PRN (23:17)
--- NOTE | 2016-10-08 23:18 | NUR ---
PRN Clonidine, Motrin, and Trazodone Pt reports feeling anxious and "I'm not able to get comfortable". She is shifting in bed and reports mild abdominal pain. She states she is unable to fall asleep. PRN Clonidine, Motrin, and Trazodone administered.
[2016-10-09] VITALS: BP 98/60
[2016-10-09 04:00] VITALS: BP 87/48
[2016-10-09] MEDS: PENTOXIFYLLINE 400 MG TABLET.SA PO SCH ×2 (06:41→14:04)
[2016-10-09] MEDS: VANCOMYCIN FOR PO/GT/NG USE PO SCH ×2 (06:41→11:58)
[2016-10-09] MEDS: ACIDOPHILUS/BULGARICUS CHEW TAB PO SCH ×2 (06:41→14:04)
--- NOTE | 2016-10-09 07:01 | NUR ---
END OF SHIFT Report provided to day shift nurse. Pt is lying in bed resting. She is a 36 yo female admitted to [facility] on 10/02 for ETOH dependence. She is A&O x4. NKA, full code status, and on a regular diet. She has PMH of cirrhosis, anemia, peripheral neuropathy, c-diff, anxiety, and depression. Pt is on isolation precautions for c-diff. On admission she reported drinking 2 bottles of wine per day. Prior to admission she was administered Ativan IV 2mg 2x/day starting on 09/25/16. Abx ordered for treatment of c-diff. Taper ended with PRN's available for management of withdrawal symptoms. She is scheduled for discharge today. Her abdomen is distended and skin is jaundiced. Pt reports feeling stronger than she has. Minimal s/s of withdrawal noted. PRN Clonidine and Trazodone administered. Last CIWA was 0. She drank 500 and slept 5 hours. Fall, seizure, and isolation precautions in place. Bed is down with call light in reach.
--- NOTE | 2016-10-09 07:40 | NUR ---
START OF SHIFT NOTE: Received report from film processing shift supervisor nurse. Pt is a 36 yo female admitted to [facility] on 10/02/16 for ETOH dependence. To be discharged today. Pt is alert and oriented X4. Color jaundiced. Respirations even and unlabored. Pt on isolation for C-DIFF. Pt is resting in bed at this time. Safety precautions observed. Call light within reach. Will continue to monitor.
--- NOTE | 2016-10-09 08:00 | NUR ---
VSS Discharge papers signed and home medication bag signed. Pt c/o anxiety. Vistaril 25mg po prn given.
[2016-10-09] MEDS: ASCORBIC ACID 250 MG TABLET PO SCH (08:11)
[2016-10-09] MEDS: ESCITALOPRAM OXALATE 10 MG TABLET PO SCH (08:11)
[2016-10-09] MEDS: THIAMINE HCL 100 MG TABLET PO SCH (08:11)
[2016-10-09] MEDS: FOLIC ACID 1 MG TABLET PO SCH (08:12)
[2016-10-09] MEDS: MULTIVITAMINS,THERAPEUTIC TABLET PO SCH (08:12)
[2016-10-09] MEDS: GABAPENTIN 300 MG CAPSULE PO SCH (08:12)
[2016-10-09] MEDS: HYDROXYZINE PAMOATE 25 MG CAPSULE PO PRN ×2 (08:14→13:58)
[2016-10-09] MEDS: FERROUS SULFATE 325 MG TABEC PO SCH (08:47)
--- NOTE | 2016-10-09 09:00 | NUR ---
Pt feels less anxious after Vistaril prn.
[2016-10-09 09:05] VITALS: BP 101/63
[2016-10-09] MEDS: IBUPROFEN 400 MG TABLET PO PRN (09:17)
--- NOTE | 2016-10-09 09:20 | NUR ---
Pt c/o lower abdominal pain. Motrin 400mg po prn given
--- NOTE | 2016-10-09 10:20 | NUR ---
Pt states abdominal pain resolved after Motrin prn
--- NOTE | 2016-10-09 12:14 | NUR ---
Pt awaiting discharge
[2016-10-09 14:00] VITALS: BP 120/86
[2016-10-09] MEDS: CLONIDINE HCL 0.1 MG TABLET PO PRN (14:00)
--- NOTE | 2016-10-09 14:27 | NUR ---
Therapist encouraged client to participate in daily group therapy sessions. Client stated she did not want to attend at this time.
--- NOTE | 2016-10-09 14:35 | NUR ---
Pt discharged in stable condition with all belongings, valuables and home medications. Pt denies SI/HI. Home with father.
== END 2016-10-09 14:35 | disposition short-term general hospital (02) | DRG 895 ==
LOC: SRC 16:52
PROVIDERS: ADMIT Internal Medicine; ATTEND Internal Medicine
PROC: HZ2ZZZZ Detoxification Services for Substance Abuse Treatment (ICD-10-PCS; principal; 2016-10-02)
PROC: HZ59ZZZ Individual Psychotherapy for Substance Abuse Treatment, Supportive (ICD-10-PCS; 2016-10-03)
DX: F10.230 Alcohol dependence with withdrawal, uncomplicated (principal); A04.7 Enterocolitis due to Clostridium difficile; D68.4 Acquired coagulation factor deficiency; D61.818 Other pancytopenia; E46 Unspecified protein-calorie malnutrition; K70.10 Alcoholic hepatitis without ascites; Y90.0 Blood alcohol level of less than 20 mg/100 ml; G62.1 Alcoholic polyneuropathy; Z80.8 Family history of malignant neoplasm of other organs or systems; G47.00 Insomnia, unspecified; H66.91 Otitis media, unspecified, right ear; E87.6 Hypokalemia; D64.9 Anemia, unspecified; F32.9 Major depressive disorder, single episode, unspecified; F41.9 Anxiety disorder, unspecified; K70.30 Alcoholic cirrhosis of liver without ascites; E83.39 Other disorders of phosphorus metabolism; E83.42 Hypomagnesemia; K72.90 Hepatic failure, unspecified without coma; E53.8 Deficiency of other specified B group vitamins; Z68.24 Body mass index [BMI] 24.0-24.9, adult; D50.9 Iron deficiency anemia, unspecified
CPT/HCPCS: 36415; 80307; 83550; 83735; 84100; 84703; 85025; 85730; 86580; 93005; 97110; 97116; 97161; 97165; A4663; J3370; Q0162

== ENCOUNTER 2016-12-30 11:37 | Inpatient (IN) | payer BC, OTHER ==
[~2016-12-30] VITALS: Ht 172.7 cm; Wt 65.8 kg
[~2016-12-30 11:37] MED LIST changes: -ACET-2154 PO; -AMOX-430 PO; +ASCO250T5 PO; -ATIVAN PO; -CIPR10DR RIGHT EAR; -CLON0.1T PO; -DICY20TA11 PO; -DIPH25CA83 PO; -DOCU-170 PO; -ESCI5TAB PO; -HYDR-3028 PO; -IBUP-1481 PO; -LOPE2CAP PO; -LORA2TAB PO; -MAG-55 PO; -MAGNESIUM PO; -MULT-70 PO; -PANT40TA2 PO; +PENT400T2 PO; -POLY17PO4 PO; -PROTONIX IV; -ZOFRAN IM
[2016-12-30] MEDS ORDERED: ONDANSETRON ODT 4 MG TAB.RAPDIS SL PRN (14:00)
[2016-12-30] MEDS ORDERED: IBUPROFEN 400 MG TABLET PO PRN (14:00)
[2016-12-30] MEDS ORDERED: LORAZEPAM 1 MG TABLET PO PRN (14:00)
[2016-12-30] MEDS ORDERED: LORAZEPAM 2 MG/1 ML VIAL IM PRN (14:00)
[2016-12-30] MEDS ORDERED: CLONIDINE HCL 0.1 MG TABLET PO PRN (14:00)
[2016-12-30] MEDS ORDERED: ONDANSETRON 4 MG/2 ML VIAL IM PRN (14:00)
[2016-12-30] MEDS ORDERED: TRAZODONE 50 MG TABLET PO PRN (14:00)
[2016-12-30] MEDS ORDERED: MAGNESIUM HYDROXIDE 30 ML LIQUID UDC PO PRN (14:00)
[2016-12-30] MEDS ORDERED: THIAMINE HCL 200 MG/2 ML VIAL IM ONE (14:00)
[2016-12-30] MEDS ORDERED: LOPERAMIDE HCL 2 MG CAPSULE PO PRN ×2 (14:00)
[2016-12-30] MEDS ORDERED: MAG HYDROX/AL HYDROX/SIMETH 30 ML LIQUID UDC PO PRN (14:00)
[2016-12-30] MEDS ORDERED: ACETAMINOPHEN 325 MG TABLET PO PRN (14:00)
[2016-12-30 14:15] VITALS: BP 118/57
--- NOTE | 2016-12-30 14:15 | NUR ---
PRE ASSESSMENT PT IS IN INTAKE. HER SPEECH IS SLIGHTLY SLURRED. HER GAIT IS STEADY. A/O X4. SHE REPORTS DRINKING A BOTTLE OF WINE NIGHTLY X 3 DAYS. LAST DRANK 1/2 BOTTLE OF WINE THIS AM. VS FOLLOWS BP118/57 P 111 96.4 16 98%. SHE DENIES ALLERGIES. SHE DENIES SEIZURE HX. SHE REPORTS NEUROPATHY,HX CIRRHOSIS,ANEMIA,ANXIETY AND DEPRESSION. WILL ASSESS PT ON UNIT.
[2016-12-30 14:30] LABS: BASOPHILS % (AUTO) 0.5 % (0.0-2.0); EOSINOPHILS # (AUTO) 0.1 K/uL (0.0-0.7); EOSINOPHILS % (AUTO) 0.8 % (0.0-7.0); HEMATOCRIT 31.2 % (37-47); HEMOGLOBIN 9.5 G/DL (12.0-16.0); LYMPHOCYTES # (AUTO) 1.3 K/UL (0.8-4.8); LYMPHOCYTES % (AUTO) 19.5 % (20.5-51.5); MEAN CORPUSCULAR HEMOGLOBIN 23.9 UUG (27.0-31.0); MEAN CORPUSCULAR HGB CONC 30 g/dL (32.0-37.0); MEAN CORPUSCULAR VOLUME 78.7 FL (81.0-99.0); MONOCYTES # (AUTO) 0.6 K/UL (0.1-1.30); MONOCYTES % (AUTO) 9.3 % (0.0-11.0); NEUTROPHILS # (AUTO) 4.8 K/UL (1.8-8.9); NEUTROPHILS % (AUTO) 69.9 % (38.5-71.5); PLATELET COUNT (AUTO) 132 K/UL (150-450); RED BLOOD CELL COUNT(AUTO) 3.96 MIL/UL (4.2-5.4); WHITE BLOOD COUNT (AUTO) 6.8 K/UL (4.0-11.2)
[2016-12-30 14:42] LABS: BILIRUBIN,TOTAL 0.8 mg/dL (0.2-1.0); CREATININE 0.6 mg/dL (0.6-1.3); MAGNESIUM 1.7 mg/dL (1.8-2.4); POTASSIUM 3.7 mmol/L (3.5-5.1)
[2016-12-30] MEDS ORDERED: MAGNESIUM OXIDE 400 MG TABLET PO ONE (15:30)
[2016-12-30] MEDS ORDERED: POTASSIUM CHLORIDE 20 MEQ TAB.PRT.SR PO ONE (15:30)
--- NOTE | 2016-12-30 15:34 | NUR ---
ADMISSION: A 36 YO FEMALE ADMITTED TO [facility] FOR MEDICALLY SUPERVISED DETOX OF ETOH.SHE REPORTS DRINKING 1 BOTTLE OF WINE Q NIGHT X 3 DAYS. SHE REPORTS DRINKING 1/2 BOTTLE THIS AM. HER B.A.L. IS 0.38. SHE REPORTED TO MD DRINKING 2 BOTTLES TODAY PRIOR TO ADMISSION. HER SPEECH IS SLIGHTLY SLURRED AND SHE IS A POOR HISTORIAN. SHE APPEARS MILDLY INTOXICATED AND IS ODOROUS OF ETOH. SHE IS A/O X 4. SHE STATES SHE WAS HERE A FEW MONTHS AGO AND WENT TO [facility] AFTER AND STAYED SOBER UNTIL FRIDAY AT HER 1 YO [employer]. SHE STATES SHE CANNOT STOP DRINKING ON HER OWN AND NEEDS HELP. SHE REPORTS A HX OF CIRRHOSIS,NEUROPATHY AND ANEMIA AND ALSO REPORTS ANXIETY AND DEPRESSION. SHE STATES SHE WAS NOT GOING TO AA. MEETINGS AND THINKS THE PRESSURE OF PLANNING THE [employer] TRIGGERED HER RELAPSE. SHE IS A STAY AT HOME MOM. SHE TAKES LEXAPRO,GABAPENTIN AND TRAZODONE AT HOME. SHE BROUGHT MEDS WITH HER. SHE COULD NOT REMEMBER HER PCP NAME. HER SKIN IS WARM DRY AND INTACT. SHE IS UNABLE TO PROVIDE URINE AND IS ASKING FOR SOMETHING FOR ANXIETY. EDUCATED PT ON POLICIES AND INFORMED HER OF THE IMPORTANCE OF HAVING A URINE SAMPLE BEFORE MEDS CAN BE ADMINISTERED. SHE IS CURRENTLY IN HER ROOM WITH 1:1 SITTER UNTIL URINE IS PROVIDED. ORIENTED PT TO STAFF AND UNIT. ENCOURAGED INCREASED FLUIDS AND OFFERED SUPPORT. SHE DENIES S/I AND H/I. REASSURED PT THAT NURSING STAFF IS AVAILABLE 18/11. WILL CONTINUE TO PROVIDE SAFE AND SUPPORTIVE ENVIRONMENT.
[2016-12-30 16:00] VITALS: BP 111/63
--- NOTE | 2016-12-30 16:46 | NUR ---
MAGNESIUM AND K DUR ADMINISTERED PER MD FOR REPLACEMENT.
[2016-12-30 16:58] LABS: *URINE HCG, QUAL NEGATIVE (NEGATIVE)
[2016-12-30 17:05] LABS: *AMPHETAMINE, URINE NEGATIVE (NEGATIVE); *BARBITURATE, URINE NEGATIVE (NEGATIVE); *CANNABINOID, URINE NEGATIVE (NEGATIVE); *COCCAINE, URINE NEGATIVE (NEGATIVE); *OPIATE, URINE NEGATIVE (NEGATIVE); *PHENCYCLIDINE SCREEN,URINE NEGATIVE (NEGATIVE)
[2016-12-30] MEDS ORDERED: HYDROXYZINE PAMOATE 25 MG CAPSULE PO ONE (18:00)
[2016-12-30] MEDS: GABAPENTIN 300 MG CAPSULE PO SCH ×2 (18:03→21:08)
--- NOTE | 2016-12-30 18:33 | NUR ---
END OF SHIFT: PT LAYING IN BED A/O X 4.SHE C/O ANXIETY. GABAPENTIN AND VISTARIL GIVEN PER MD. SHE IS COMPLIANT WITH INCREASED FLUIDS . WILL PASS SHIFT REPORT TO ONCOMING NIGHT NURSE.
[2016-12-30 20:00] VITALS: BP 124/88
--- NOTE | 2016-12-30 20:00 | NUR ---
START OF SHIFT NOTE PATIENT IN HER ROOM, ALERT AND ORIENTED X 4. RESPIRATION EVEN AND UNLABORED. PATIENT REPORTS SEVERE ANXIETY, DENIES ANY PAIN AND N/V. RECEIVED REPORT FROM DAY SHIFT NURSE. PATIENT IS A 36 YEAR OLD FEMALE NEWLY ADMITTED FOR ETOH DEPENDENCE. PATIENT WITH PRN MEDICATION . UPON ADMISSION, PATIENT STATES SHE RELAPSED 3 DAYS AGO. PATIENT REPORTED DRINKING WINE 2 BOTTLES DAILY. NO SEIZURE HISTORY. SKIN INTACT. PATIENT WAS GIVEN PRN VISTARIL. ETHYL ALCOHOL WAS 0.38%. LAST CIWA 4. ON FALL/SEIZURE PRECAUTION. SAFETY MEASURES IN PLACE. CALL LIGHT IN REACH. WILL CONTINUE TO MONITOR.
[2016-12-30] MEDS: LORAZEPAM 1 MG TABLET PO PRN (21:08)
--- NOTE | 2016-12-30 21:08 | NUR ---
ONE TIME ATIVAN ADMINISTRATION PATIENT REPORTS SEVERE ANXIETY , HR 103, SLIGHTLY AGITATED AND RESTLESS , CIWA 7 AT THIS TIME. NON PHARMACOLOGICAL INTERVENTION INEFFECTIVE. WILL MONITOR FOR EFFECTIVENESS
--- NOTE | 2016-12-30 22:08 | NUR ---
ONE TIME ATIVAN RE-ASSESSMENT PATIENT IN HER ROOM. PATIENT STATES SHE FEELS MUCH BETTER, ANXIETY IS LESS. CIWA IS NOW 2. WILL CONTINUE TO MONITOR.
[2016-12-31] VITALS: BP 117/71
[2016-12-31 04:00] VITALS: BP 122/71
[2016-12-31] MEDS: HYDROXYZINE PAMOATE 25 MG CAPSULE PO PRN ×2 (04:31→15:05)
--- NOTE | 2016-12-31 04:31 | NUR ---
PRN VISTARIL AND MOTRIN ADMINISTRATION PATIENT C/O ANXIETY AND HEADACHE 10/05. PRN VISTARIL AND MOTRIN . WILL MONITOR FOR EFFECTIVENESS
--- NOTE | 2016-12-31 05:31 | NUR ---
PRN VISTARIL AND MOTRIN RE-ASSESSMENT PATIENT IN BED SLEEPING COMFORTABLY. NO S/S OF DISTRESS. NO FACIAL GRIMACING. RESPIRATION EVEN AND UNLABORED SAFETY MEASURES IN PLACE. CALL LIGHT IN REACH. WILL CONTINUE TO MONITOR
--- NOTE | 2016-12-31 07:08 | NUR ---
END OF SHIFT NOTE PATIENT REMAIN ALERT AND ORIENTED X 4. RESPIRATION EVEN AND UNLABORED. PATIENT REPORTED SEVERE ANXIETY, DENIES ANY PAIN AND N/V BEGINNING OF SHIFT. PATIENT WAS RESTLESS, AGITATED AND WITH SEVERE ANXIETY, CIWA WAS 7 , PRN ATIVAN GIVEN AND EFFECTIVE, PATIENT'S CIWA WENT DOWN TO 2. AT 0431, PATIENT C/O HEADACHE 6/10 AND ANXIETY. PRN MOTRIN AND VISTARIL GIVEN. ON FALL/SEIZURE PRECAUTION. SAFETY MEASURES IN PLACE. CALL LIGHT IN REACH. WILL CONTINUE TO MONITOR. SLEPT 6 HOURS. FLUID INTAKE 800 ML. VOIDED X 3.NO BM. LAST CIWA 2 .
[2016-12-31 08:00] VITALS: BP 125/65
--- NOTE | 2016-12-31 08:10 | NUR ---
START OF SHIFT: RECEIVED PT A/O X 4. SHE PRESENTS WITH ANXIOUS MOOD AND CONGRUENT AFFECT. FINE TREMORS NOTED. SHE C/O ANXIETY AND RESTLESSNESS. CIWA 7 . PRN ATIVAN 1 MG PO GIVEN FOR S/S OF W/D.WILL MONITOR EFFECTIVENESS. SHE STATES SHE SLEPT VERY RESTLESS LAST NIGHT. SHE STATES SHE IS ANXIOUS TO TALK TO MD TO FIND OUT HER LENGTH OF STAY HERE. OFFERED SUPPORT AND REASSURED HER THAT MD WOULD BE SEEING HER THIS AM. ENCOURAGED INCREASED FLUIDS TO ASSIST IN FACILITATING DETOX PROCESS. ENCOURAGED REST TODAY. WILL CONTINUE TO MONITOR AND PROVIDE SAFE AND SUPPORTIVE ENVIRONMENT.
[2016-12-31] MEDS: THIAMINE HCL 100 MG TABLET PO SCH (08:55)
[2016-12-31] MEDS: GABAPENTIN 300 MG CAPSULE PO SCH ×2 (08:55→15:05)
[2016-12-31] MEDS: MULTIVITAMINS,THERAPEUTIC TABLET PO SCH (08:55)
[2016-12-31] MEDS: FOLIC ACID 1 MG TABLET PO SCH (08:55)
[2016-12-31] MEDS: LORAZEPAM 1 MG TABLET PO PRN (08:55)
[2016-12-31] MEDS ORDERED: TUBERCULIN,PURIF.PROT.DERIV. 5 TU/0.1 ML TEST ID ONE (09:00)
--- NOTE | 2016-12-31 09:10 | NUR ---
PRN ATIVAN EFFECTIVE AEB CIWA NOW 4. WILL CONTINUE TO MONITOR AND OFFER SUPPORT.
[2016-12-31 12:00] VITALS: BP 134/73
--- NOTE | 2016-12-31 15:10 | NUR ---
PRN VISTARIL ADMINISTERED FOR REPORTED ANXIETY. WILL MONITOR EFFECTIVENESS OF MEDICATION.
[2016-12-31] MEDS ORDERED: GABAPENTIN 300 MG CAPSULE PO ONE (15:30)
[2016-12-31 16:00] VITALS: BP 131/75
--- NOTE | 2016-12-31 16:05 | NUR ---
PT STATES THE VISTARIL WAS EFFECTIVE. WILL CONTINUE TO PROVIDE SAFE AND SUPPORTIVE ENVIRONMENT
--- NOTE | 2016-12-31 16:07 | NUR ---
NON ADMINISTERED ONE TIME ORDER PT ALREADY RECEIVED 300MG.
[2016-12-31] MEDS ORDERED: TRAZODONE 50 MG TABLET PO PRN (17:00)
--- NOTE | 2016-12-31 18:58 | NUR ---
END OF SHIFT: PT CONTINUES ON OBSERVATION LEVEL OF CARE. PPD REFUSED . SHE RECEIVED 1 MG OF ATIVAN PO PRN THIS AM FOR CIWA 7. SHE HAD FINE TREMORS,WAS FLUSHED AND REPORTED SWEATS AND ANXIETY. ATIVAN WAS EFFECTIVE. SHE RESTED AND WAS COMPLIANT WITH INCREASED FLUIDS. SHE IS SCHEDULED TO DISCHARGE TO [facility] ON 01/01. WILL PASS SHIFT REPORT TO ONCOMING NIGHT NURSE.
--- NOTE | 2016-12-31 19:30 | NUR ---
Start of shift notes: Received patient in bed, awake, alert and oriented x4. Mood, when asked stated "I'm doing ok" Affect: bright. Calm and cooperative with care. Maintained good eye contact. Speech is clear and able to make her needs known. Will continue to monitor behavior and medication effectiveness throughout the shift. Will provide support and therapeutic environment.
[2016-12-31] MEDS ORDERED: THIA100T13 PO (19:57)
[2016-12-31] MEDS ORDERED: TRAZ-147 PO (19:57)
[2016-12-31] MEDS ORDERED: FOLI1TAB16 PO (19:57)
[2016-12-31] MEDS ORDERED: HYDR-3895 PO (19:57)
[2016-12-31] MEDS ORDERED: ESCI10TA PO (19:57)
[2016-12-31] MEDS ORDERED: MULT-24 PO (19:57)
[2016-12-31] MEDS ORDERED: GABA-534 PO ×2 (19:57)
[2016-12-31 20:00] VITALS: BP 137/80
[2016-12-31] MEDS ORDERED: ESCITALOPRAM OXALATE 10 MG TABLET PO SCH (21:00)
[2016-12-31] MEDS ORDERED: GABAPENTIN 300 MG CAPSULE PO SCH (21:00)
[2016-12-31] MEDS ORDERED: TRAZODONE 100 MG TABLET PO PRN (21:00)
--- NOTE | 2016-12-31 21:30 | NUR ---
Trazodone 250mg PRN for insomnia
[2017-01-01] VITALS: BP 122/59
[2017-01-01 04:06] LABS: HEPATITIS B SURFACE AG Negative (Negative)
--- NOTE | 2017-01-01 04:08 | NUR ---
Patient asleep. Respiration even and unlabored. Refused CIWA and vital signs assessment at this time. Addendum: 01/01/17 at 0410 by PAUL NEITO RN Amended: Links added.
--- NOTE | 2017-01-01 05:51 | NUR ---
End of shift: Patient remained calm and cooperative with care. Offered Trazodone 250 PRN for insomnia. Slept 5 hours. Respiration even and unlabored. No signs of distress. Participated in the ongoing plan of care. No behavior issues. Denies SI/HI/AVH. Patient is independent and thought process linear. Focused on going to [facility]ber living Facility. Will continue to monitor behavior. All needs met.
--- NOTE | 2017-01-01 07:15 | NUR ---
Start of Shift Report from night nurse: pt is here for Etoh dependence r/t Wine 2 bottles daily for 3 days; PRN Ativan was ordered yet is complete and orders for the pt to d/c to rehab today. Pt is a full code, regular diet, NKA, fall precautions ordered. HHx: Peripheral Neuropathy, Cirrhosis, anxiety, depression and relapses. Pt is stable. V/S stable. Skin is intact. PRN trazodone given for sleep last night. Pt is awake in room & getting ready for d/c. Will cont. to monitor the pt. Last CIWA 2
[2017-01-01 08:00] VITALS: BP 106/64
[2017-01-01] MEDS: MULTIVITAMINS,THERAPEUTIC TABLET PO SCH (08:17)
[2017-01-01] MEDS: THIAMINE HCL 100 MG TABLET PO SCH (08:17)
[2017-01-01] MEDS: FOLIC ACID 1 MG TABLET PO SCH (08:17)
[2017-01-01] MEDS ORDERED: GABAPENTIN 300 MG CAPSULE PO SCH (09:00)
--- NOTE | 2017-01-01 09:35 | NUR ---
Discharge Pt is A&O x 4, ambulatory independently. Features symmetrical, PERRLA 3mm, no EDMONDS, dizziness or N/V noted. Pt denies chest pain. No SOB noted. V/S stable. Pt voided . Skin is intact. No w/d s/sx noted. Pt is given belongings, written prescription, home medications, cosmetics and d/c summary packet. Pt is chaperoned to the lobby and transported to the [facility] facility via the [facility].
== END 2017-01-01 09:15 | disposition other institution (70) | DRG 895 ==
LOC: SRC 13:34
PROVIDERS: ADMIT Internal Medicine; ATTEND Internal Medicine
PROC: HZ2ZZZZ Detoxification Services for Substance Abuse Treatment (ICD-10-PCS; principal; 2016-12-30)
PROC: HZ41ZZZ Group Counseling for Substance Abuse Treatment, Behavioral (ICD-10-PCS; 2016-12-31)
DX: F10.230 Alcohol dependence with withdrawal, uncomplicated (principal); D69.6 Thrombocytopenia, unspecified; F33.1 Major depressive disorder, recurrent, moderate; K70.10 Alcoholic hepatitis without ascites; G62.1 Alcoholic polyneuropathy; E83.42 Hypomagnesemia; F10.220 Alcohol dependence with intoxication, uncomplicated; Y90.9 Presence of alcohol in blood, level not specified; Z82.49 Family history of ischemic heart disease and other diseases of the circulatory system; Z80.8 Family history of malignant neoplasm of other organs or systems; G47.00 Insomnia, unspecified; F41.9 Anxiety disorder, unspecified; D50.9 Iron deficiency anemia, unspecified; K70.9 Alcoholic liver disease, unspecified
CPT/HCPCS: 36415; 70030-TC; 80307; 83690; 83735; 84703; 85025; 86592; 86705; 86803; 87340; 87806; G0480

== ENCOUNTER 2017-01-13 13:39 | Inpatient (IN) | payer BC, OTHER ==
[~2017-01-13] VITALS: Ht 172.7 cm; Wt 68.0 kg
[~2017-01-13 13:39] MED LIST changes: -ACID1TAB4 PO; +HYDR-3895 PO; -PENT400T2 PO; +TRAZ-147 PO; -VANC500V PO
--- NOTE | 2017-01-13 14:20 | NUR ---
PRE-ADMISSION NOTE Pt is in intake office in stable condition. Pt V/S are WNL b/p is 128/74, heart rate 105, 96% room air, 16 RR even and unlabored, 98.2, and 0/10 pain. Speech is clear, gait is steady. Will continue intake assessment when pt is on unit.
--- NOTE | 2017-01-13 14:25 | NUR ---
ADMISSION NOTE Pt is a 36 year old female, admitted on 01/14/16 at 1435 for ETOH withdrawals. Pt awake, alert, oriented x 4, gait steady, pt is ambulatory without assistance. Pt weights 150 pounds and his height is 58. Denies any history of seizures. Pt brought home medications which have been reconciled. Pt refused PNA Vaccinations stating that she will receive it somewhere else. Pt states her PCP is Dr. Emerald Suero. Pt requested to be full code, regular diet on fall and seizure precautions, Pt denies allergies. Last BM was on 01/13/17. Pt states that she lives at home with spouse and child. Pt denies smoking cigarettes. Tx hx includes [facility] in September 2016 and was in [facility] 12 days ago and relapsed afterwards. Pt is a candidate for MRSA, swab was sent to lab. Pts initial vital signs are BP: 128/74, Temp: 98.2, Pulse: 105 SPO2: 96% RR:16 and denies pain. Pts initial CIWA was a 2, mild anxiety and agitation. Pt reports PMH of Anxiety, Depression, Peripheral Neuropathy, blood transfusions. Denies SI/HI or hallucinations. Pt reports drinking 1 bottle of wine daily for the past 12 days, last drink was "a couple of hours before admission," pt reports drinking 1 1/2 glass of wine. Safety measures are in place, pt is stable, will continue to monitor.
[2017-01-13 15:09] VITALS: BP 128/74
[2017-01-13 15:26] LABS: *URINE HCG, QUAL NEGATIVE (NEGATIVE)
[2017-01-13 15:30] LABS: *AMPHETAMINE, URINE NEGATIVE (NEGATIVE); *BARBITURATE, URINE NEGATIVE (NEGATIVE); *CANNABINOID, URINE NEGATIVE (NEGATIVE); *COCCAINE, URINE NEGATIVE (NEGATIVE); *OPIATE, URINE NEGATIVE (NEGATIVE); *PHENCYCLIDINE SCREEN,URINE NEGATIVE (NEGATIVE)
[2017-01-13 16:26] VITALS: BP 119/72
[2017-01-13 16:45] LABS: BILIRUBIN,TOTAL 0.8 mg/dL (0.2-1.0); CREATININE 0.6 mg/dL (0.6-1.3); MAGNESIUM 1.5 mg/dL (1.8-2.4); POTASSIUM 3.7 mmol/L (3.5-5.1); TOTAL PROTEIN, SERUM 7.7 g/dL (6.4-8.2)
[2017-01-13 18:06] LABS: WHITE BLOOD COUNT (AUTO) 3.2 K/UL (4.0-11.2)
[2017-01-13 18:07] LABS: BASOPHILS % (AUTO) 0.4 % (0.0-2.0); EOSINOPHILS % (AUTO) 0.5 % (0.0-7.0); HEMATOCRIT 29.3 % (37-47); HEMOGLOBIN 9.4 G/DL (12.0-16.0); LYMPHOCYTES # (AUTO) 0.7 K/UL (0.8-4.8); LYMPHOCYTES % (AUTO) 21.6 % (20.5-51.5); MEAN CORPUSCULAR HEMOGLOBIN 24.2 UUG (27.0-31.0); MEAN CORPUSCULAR HGB CONC 32 g/dL (32.0-37.0); MEAN CORPUSCULAR VOLUME 75.6 FL (81.0-99.0); MONOCYTES % (AUTO) 4.1 % (0.0-11.0); NEUTROPHILS # (AUTO) 2.3 K/UL (1.8-8.9); NEUTROPHILS % (AUTO) 73.4 % (38.5-71.5); PLATELET COUNT (AUTO) 79 K/UL (150-450); RED BLOOD CELL COUNT(AUTO) 3.87 MIL/UL (4.2-5.4)
[2017-01-13 18:08] LABS: MONOCYTES # (AUTO) 0.1 K/UL (0.1-1.30)
[2017-01-13 18:22] LABS: BAND % (MANUAL) 8 % (0-10); LYMPHOCYTES % (MANUAL) 19 % (20-40); MONOCYTES % (MANUAL) 6 % (2-10); NEUTROPHILS % (MANUAL) 67 % (42-75)
--- NOTE | 2017-01-13 19:01 | NUR ---
END OF SHIFT Endorsed to night nurse. 36 year old female admitted for ETOH withdrawals. Pt recently was discharged from [facility] and relapsed for 12 days. Pt has not yet been started on a taper, PRNs available. No PRN medications needed or administered. V/S remain WNL. Pt denies pain or discomfort at this time. Most recent CIWA is 2 at 1700. Pt encouraged to verbalize feelings. All needs met at this time. Night nurse will continue to monitor.
--- NOTE | 2017-01-13 19:15 | NUR ---
START OF SHIFT Received 36 year old female patient admitted on 01/13/17 for ETOH dependency. Pt is full code with NKA. She reports a PMHx of peripheral neuropathy, depression, anxiety, anemia and blood transfusion. Pt reports drinking ETOh 1 bottle of wine (750mL) daily for 12 days. Last dose was 1.5 glasses of wine on 01/13/17. Pt denies a history of seizures. She is currently not on a taper but has PRN medications available. Per endorsement, pt did not receive or request PRN medications. Pt is alert and oriented x4, breathing is even and unlabored. Safety measures in place. Will monitor.
[2017-01-13 20:00] VITALS: BP 145/78
--- NOTE | 2017-01-13 22:27 | NUR ---
ONE TIME TRAZODONE/PRN VISTARIL Pt complains of anxiety and inability to sleep. One time order for Trazodone 50 mg and PRN Vistaril administered as ordered. Will monitor effectiveness.
--- NOTE | 2017-01-13 23:27 | NUR ---
PRN REASSESSMENT Pt reports she is still unable to sleep, Trazodone ineffective. Pt reports decreased anxiety. PRN Vistaril was effective. Will continue to monitor.
[2017-01-14] VITALS: BP 120/62
--- NOTE | 2017-01-14 00:33 | NUR ---
PRN BENADRYL Pt complains of inability to fall asleep after administration of one time Trazodone. PRN Benadryl administered as ordered for insomnia. Will monitor effectiveness.
--- NOTE | 2017-01-14 01:33 | NUR ---
PRN BENADRYL REASSESSMENT PRN medication effective. Pt lying in bed with eyes closed noted to be asleep. Respirations 16, breathing is even and unlabored. Safety measures in place. Will monitor.
--- NOTE | 2017-01-14 04:00 | NUR ---
VITALS REFUSED/ CIWA DEFERRED 0400 vitals refused by pt. CIWA deferred d/t pt lying in bed with eyes closed noted to be asleep. Respirations 16, breathing is even and unlabored. Safety measures in place. Will monitor.
--- NOTE | 2017-01-14 07:11 | NUR ---
END OF SHIFT Pt is a 36 year old female patient admitted on 01/13/17 for ETOH dependency. Pt is full code with NKA. She reports a PMHx of peripheral neuropathy, depression, anxiety, anemia and blood transfusion. She remains without a taper and has PRN medications available. At 2227 pt received one time order of Trazodone and PRN Vistaril. At 0033 she received PRN Benadryl. She slept a total of 5 hrs, Intake: 947 mL, Void: x1, BM:0, CIWA: 2. Pt remains alert and oriented x4, breathing is even and unlabored. Safety measures in place. Endorsed to oncoming shift.
--- NOTE | 2017-01-14 07:44 | NUR ---
Start of shift note; Received report from night nurse. Patient is a 36 year old female admitted on 01/13/17 for ETOH dependence. Patient reported drinking 1 bottle of wine for 12 days. Patient reported history of peripheral neuropathy, depression, anxiety, anemia. Patient is currently on PRN medications only. Patient is on fall and seizure precautions. Bed in lowest position call light within reach. Will continue to monitor patient.
[2017-01-14 08:00] VITALS: BP 130/83
--- NOTE | 2017-01-14 08:22 | NUR ---
PRN medication and PPD refusal; Patient appears anxious and agitated. Non-pharmacological relaxation techniques ineffective. PRN Vistaril 25mg for anxiety. Will continue to monitor patient. Patient refused to receive PPD test. Educated patient regarding the importance of compliance to treatment plan, patient verbalized understanding. Will notify MD.
--- NOTE | 2017-01-14 09:00 | NUR ---
PPD refusal; Patient refused to receive PPD test, MD was notified of patient's refusal to PPD. No new orders noted.
--- NOTE | 2017-01-14 09:00 | NUR ---
Magnesium supplement; Patient's magnesium is low (1.5), one time order for Magnesium oxide 400mg PO given for supplement per MD order.
--- NOTE | 2017-01-14 09:22 | NUR ---
Re-assessment; Patient appears calm and comfortable. PRN medication is effective.
[2017-01-14 11:07] LABS: HEPATITIS B SURFACE AG Negative (Negative)
[2017-01-14 12:00] VITALS: BP 132/80
[2017-01-14 16:00] VITALS: BP 130/60
--- NOTE | 2017-01-14 16:44 | NUR ---
PRN medication; Patient appears anxious and agitated, non pharmacological relaxation techniques ineffective. PRN Vistaril 25mg PO given for anxiety. Will continue to monitor patient for effectiveness of medication.
--- NOTE | 2017-01-14 17:44 | NUR ---
Re-assessment; Patient appears calm and comfortable. PRN Vistaril noted to be effective.
--- NOTE | 2017-01-14 18:21 | NUR ---
End of shift note; Patient is AOX4. Patient is a 36 year old female admitted on 01/13/17 for ETOH dependence. Patient reported drinking 1 bottle of wine for 12 days. Patient reported history of peripheral neuropathy, depression, anxiety, anemia. Patient is currently on PRN medications only. Patient is on fall and seizure precautions. Patient remained compliant with treatment plan. Patient is medically cleared for discharge tomorrow per MD. All safety measures secured. Met all needs.
--- NOTE | 2017-01-14 19:15 | NUR ---
START OF SHIFT Received 36 year old female patient admitted on 01/13/17 for ETOH dependency. Pt is full code with NKA. She reports a PMHx of peripheral neuropathy, depression, anxiety, anemia and blood transfusion. Pt reports drinking ETOH 1 bottle of wine (750mL) daily for 12 days. Last dose was 1.5 glasses of wine on 01/13/17. Pt denies a history of seizures. She is not on a taper but has PRN medications available. Per endorsement, pt is scheduled to [facility]. She received PRN Vistaril x2. Pt is alert and oriented x4, breathing is even and unlabored. Safety measures in place. Will monitor.
[2017-01-14 20:00] VITALS: BP 146/74
--- NOTE | 2017-01-14 20:46 | NUR ---
PRN CLONIDINE Pt complains of anxiety/agitation. PRN clonidine administered as ordered. Will monitor effectiveness.
--- NOTE | 2017-01-14 21:46 | NUR ---
PRN REASSESSMENT PRN medication effective. Pt reports decreased anxiety and noted to be more calm. Breathing even and unlabored. Safety measures in place. Will monitor.
[2017-01-15] VITALS: BP 112/66
--- NOTE | 2017-01-15 04:00 | NUR ---
VITALS REFUSED, CIWA DEFERRED 0400 vitals refused. CIWA deferred d/t pt lying in bed with eyes closed noted to be asleep. Respirations 16, breathing is even and unlabored. Safety measures in place. Will monitor.
--- NOTE | 2017-01-15 07:04 | NUR ---
END OF SHIFT Pt is a 36 year old female patient admitted on 01/13/17 for ETOH dependency. Pt is full code with NKA. She reports a PMHx of peripheral neuropathy, depression, anxiety, anemia and blood transfusion. Pt is scheduled to be DC today to [facility]. She received PRN Clonidine at 2045. She slept a total of 7 hrs, Intake: 855mL, Void: x2, BM:0, CIWA:2. Pt remains alert and oriented x4, breathing is even and unlabored. Safety measures in place. Endorsed to oncoming shift.
--- NOTE | 2017-01-15 07:25 | NUR ---
Start of shift note; Received report from night nurse. Patient is a 36 year old female admitted on 01/13/17 for ETOH dependence. Patient reported drinking 1 bottle of wine for 12 days. Patient reported history of peripheral neuropathy, depression, anxiety, anemia. Patient is currently on PRN medications only. Patient is on fall and seizure precautions. Bed in lowest position call light within reach. Patient is medically cleared for discharge today to be transferred to [facility] treatment. Will continue to monitor patient.
[2017-01-15 08:00] VITALS: BP 125/82
--- NOTE | 2017-01-15 08:58 | NUR ---
PRN medication; Patient appears to be anxious and agitated an verbalized that she is nervous about her discharge. PRN Vistaril 25mg PO given for anxiety. Will continue to monitor patient for effectiveness.
--- NOTE | 2017-01-15 09:40 | NUR ---
Discharge note; Patient is AOX4. Patient appears calm and comfortable, PRN Vistaril is effective. Patient is medically cleared for discharge to be transferred to [facility]. Patient left at 0940 at exactly 01/15/17. Patient left in a stable condition. Patient completed taper without any adverse reactions. Met all needs.
== END 2017-01-15 09:40 | disposition other institution (70) | DRG 895 ==
LOC: SRC 13:50
PROVIDERS: ADMIT Internal Medicine; ATTEND Internal Medicine
PROC: HZ2ZZZZ Detoxification Services for Substance Abuse Treatment (ICD-10-PCS; principal; 2017-01-13)
PROC: HZ41ZZZ Group Counseling for Substance Abuse Treatment, Behavioral (ICD-10-PCS; 2017-01-14)
DX: F10.230 Alcohol dependence with withdrawal, uncomplicated (principal); F33.2 Major depressive disorder, recurrent severe without psychotic features; K70.9 Alcoholic liver disease, unspecified; G62.1 Alcoholic polyneuropathy; F10.220 Alcohol dependence with intoxication, uncomplicated; Y90.6 Blood alcohol level of 120-199 mg/100 ml; G47.00 Insomnia, unspecified; Z80.8 Family history of malignant neoplasm of other organs or systems; Z82.49 Family history of ischemic heart disease and other diseases of the circulatory system
CPT/HCPCS: 36415; 70030-TC; 80307; 83690; 83735; 84703; 85025; 86592; 86705; 86803; 87340; 87806; A4663; G0480; J3411; Q0163